=== PATIENT | male | born 1960 | race Caucasian/White ===

== ENCOUNTER 2018-07-15 20:47 | Inpatient (IN) | payer OTHER, SELFPAY ==
[2018-07-15 20:47] VITALS: BP 184/120; PULSE 104; RESP 16; TEMP 36.7; O2SAT 94
[2018-07-15] MEDS: MORPHINE 2 MG/ML INJ 4 MG IV (21:28)
[2018-07-15] MEDS: LACTATED RINGERS 1,000 ML 1000 ML IV (21:29)
[2018-07-15 21:43] LABS: Lactate (Lactic Acid) 1.5 mmol/L (0.7-2.1)
[2018-07-15] MEDS: MORPHINE 4 MG/ML INJ IV ×2 (22:04→23:11)
[2018-07-15] MEDS: levoFLOXacin 750 MG/150 ML PIGGYBACK 100 MG IV (22:44)
[2018-07-15] MEDS: LACTATED RINGERS 1,000 ML 125 ML IV (22:48)
[2018-07-15 23:45] VITALS: BP 146/105; PULSE 119; RESP 16; TEMP 37.4; O2SAT 94
[2018-07-15 23:56] VITALS: O2SAT 94
[2018-07-16] VITALS (9 sets, daily range): BP systolic 129–150; BP diastolic 82–109; PULSE 90–102; RESP 16–20; TEMP 36.7–37.1; O2SAT 90–97
[2018-07-16] MEDS: MORPHINE 2 MG/ML INJ 6 MG IV (00:13)
[2018-07-16] MEDS: metroNIDAZOLE 500 MG/100 ML PIGGYBACK 100 MG IV ×4 (00:25→20:22)
--- NOTE | 2018-07-16 01:04 | PM.HP.1 ---
History of Present Illness Date Patient Seen: 07/15/18 Time Patient Seen: 21:00 Chief complaint: APPENDIX Narrative: 57-year-old man with history of renal artery stenosis and hypertension as well as problematic gout presented to an outside hospital with acute abdominal pain. briefly approximately 24 hours ago the patient awoke from sleep with significant nausea and vomiting and feeling unwell. The symptoms progressed and by later in the morning he developed significant periumbilical abdominal pain. he proceeded to go to work but then returned home after 3 hours with significant fatigue and worsening pain. the pain in the early afternoon then progressed and localized to the right lower quadrant. he continued to feel poor with worsening nausea. Pain was worsened with walking or other movement. Patient presented to the emergency department in Sunday where he was found to have a leukocytosis and a CT scan demonstrated a locally contained perforation of a retrocecal appendix with adjacent phlegmon changes. No abscess identified. He was taken by helicopter to our facility. Upon arrival patient felt minimally improved. His initial heart rate was 110. He was hypertensive and afebrile. Of note there is a family history of colon cancer and grandmother at age 70. Patient has had a colonoscopy approximately 2 years ago underwent polypectomy at the time. He generally receives a colonoscopy now every 5 years. Patient History Medical History (Updated 07/15/18 @ 21:08 by Carmela Gonzalez RN) Achilles tendonitis (Acute) Arthritis (Acute) GERD (gastroesophageal reflux disease) (Acute) Gout (Acute) Hyperlipidemia (Acute) Hypertension (Acute) Lumbosacral radiculopathy (Acute) Skiing accident (Acute) Tendonitis of left rotator cuff (Acute) Surgical History (Updated 07/15/18 @ 21:09 by Carmela Gonzalez RN) H/O arthroscopy of right knee (Acute ~09/2011) S/P colonoscopic polypectomy (Acute ~05/2015) Social History household members: spouse Smoking Status: Former smoker alcohol intake: current Family & Social History Social History: household members spouse Prior Living Arrangements House Safety & Behavioral: Feels Safe in Current Yes Environment Been Physically Hurt or No Threatened By a Person Suicidal Ideation Description None Tobacco & Substance use: Smoking Status Former smoker alcohol intake current alcohol intake frequency a few times a week Substance Use Type marijuana Meds Home Medications Medication Instructions Recorded Confirmed Type allopurinol [Zyloprim] 300 mg PO DAILY 07/15/18 07/15/18 History benazepril 20 mg PO BID 07/15/18 07/15/18 History hydrocodone-acetaminophen [Alto] 2 tab PO Q4-6H PRN 07/15/18 07/15/18 History ibuprofen [Motrin IB] 400 mg PO Q4-6H PRN 07/15/18 07/15/18 History magnesium 07/15/18 History simvastatin [Zocor] 40 mg PO QPM 07/15/18 07/15/18 History Allergies Allergy/AdvReac Type Severity Reaction Status Date / Time Cephalosporins Allergy Rash Verified 07/15/18 21:02 Penicillins Allergy Rash Verified 07/15/18 21:02 Review of Systems Eyes Eyes: Denies bulging eyes ENT Ears, Nose, Mouth, and Throat: No lip swelling Cardiovascular Cardiovascular: Denies generalize swelling Respiratory Respiratory: Denies stridor Gastrointestinal Gastrointestinal: Denies coffee ground emesis Musculoskeletal Musculoskeletal: Denies loss of height Integumentary/Breasts Skin/Breast: Denies wounds Neurologic Neurologic: Denies abnormal speech and Denies confusion Psychiatric Psychiatric: Denies confusion Endocrine Endocrine: Denies deepening of the voice Hematologic/Lymphatic Hematologic/Lymphatic: Denies lymphadenopathy Allergic/Immunologic Allergic/Immunologic: Denies lip swelling Exam Vital Signs (past 8 hours): - 07/15/18 20:47 07/15/18 23:45 07/15/18 23:56 Temperature 98.0 F 99.3 F Pulse Rate 104 H 119 H Respiratory Rate 16 16 Blood Pressure 184/120 H 146/105 H Pulse Oximetry 94 94 94 Oxygen Delivery Method Room Air Oxygen Flow Rate 0 Const General: cooperative and healthy appearing Orientation: alert [facility] Head: normal to inspection Nose: nares normal Mouth: oral mucosae normal and lip normal Eyes Eyelids: eyelids normal Conjunctivae: conjunctivae normal Sclera: sclerae normal Neck Neck: supple and other (No thyromegally) Chest Chest: other (LCTAB , regular respiratory effort) Cardio Heart Sounds: S1 normal, S2 normal, no gallops, no murmurs and no rubs Other: Regular tachycardia GI Other: Abdomen moderately distended, no surgical incisions. there is an absence of bowel sounds. Tender to percussion in the right lower quadrant but not elsewhere. Dull to percussion. No hepatosplenomegaly. There is fairly mild tenderness in the left upper quadrant and left lower quadrant as well as the right upper quadrant. the right lower quadrant is significantly tender. There is however minimal reflexive guarding in the area and no rebound tenderness and a negative bed shake test. no umbilical or groin hernias identified. Skin General: no rashes or lesions noted Neuro General: alert and awake Psych Appearance: grossly normal Affect: normal affect Objective Labs Labs: Laboratory Results - last 24 hr 07/15/18 21:[address] images from outside hospital reviewed. They demonstrate a retrocecal appendix with fecalith near the appendiceal base. There is extraluminal air along the length of the appendix which appears dilated as well as thickened up. inflammatory changes are well localized to the right lower quadrant/retrocecal area. the cecum itself is also inflamed and the inflammation and thickening involves the appendiceal base. I did not identify free fluid within the abdomen there was no free fluid air within the abdomen beyond the small amount of air tracking along the serosa of the appendix. Assessment & Plan Assessment & Plan narrative: 57-year-old man with history of renal artery stenosis and hypertension now presents with acute perforated appendicitis locally contained adjacent to a retrocecal appendix. 1.: Perforated appendicitis- I discussed risks and benefits with the patient for early operative therapy versus management with antibiotics alone for now. Given the involvement of the appendiceal base and the phlegmon changes adjacent to the cecum I think it is quite likely that a surgical procedure at this time would result in an ileocecectomy. Patient himself is not acutely ill consistent with a locally contained perforation. His lactate from the outside hospital which was approximately 3 has now normalized to 1.5. Subjectively he feels somewhat improved since the initiation of antibiotics, by exam he has a tender but not acute abdomen. his blood pressure is high and his heart rate has come down with pain control. given this I think it is the most prudent option to delay surgery with the intention to treat with antibiotics with interval appendectomy a later date. I discussed that approximately 1 4 patient has failed this type of therapy and need not elective surgery. Plan: Levofloxacin/metronidazole IV Probiotic Pain control with multimodal therapy NPO for now until definitively nonsurgical Home benazepril and allopurinol, as needed hydralazine FEN LR 100 full labs in am NPO but meds with sips OK Quality VTE Deep Vein Thrombosis/Pulmonary Embolism Present on Admission: No
[2018-07-16] MEDS: MORPHINE 4 MG/ML INJ IV ×5 (01:30→20:20)
[2018-07-16] MEDS: LACTATED RINGERS 1,000 ML 125 ML IV (01:36)
[2018-07-16] MEDS: HEPARIN 5,000 UNIT/ML VIAL 5000 UNIT SUBCUT ×4 (01:55→22:24)
--- NOTE | 2018-07-16 02:20 | PC.NURSE ---
Shift note: Received pt from evening shift. Dr Reece requested current set of vitals which demonstrated hypertension and tachycardia, pt was also diaphoretic. He came to bedside to assess pt and determined that he would not be doing appendectomy tonight, he also ordered a one time dose of 6mg Morphine IV and pt was medicated per MAY. IV site that was started off site was positional and a new IV site was placed to facilitate IV antibiotic and fluid infusion, pt to remain NPO except for PO medications at this time. Pt's assessment also notable for abdominal pain and nausea that pt reports is from the pain, bowel tones are active and flatus is present. Pt able to make needs known and demonstrates appropriate use of call light.
[2018-07-16] MEDS: ACETAMINOPHEN 325 MG TABLET 975 MG PO ×4 (03:51→22:20)
[2018-07-16 05:56] LABS: Add Manual Diff / Slide Review NO; Basophils Absolute Auto 0 /uL (0-100); Basophils Percent Auto 0.1 % (0-2); Eosinophils Absolute Auto 0 /uL (0-450); Hematocrit 44.7 % (41-53); Hemoglobin 15.3 g/dL (13.5-17.5); Lymphocytes Absolute Auto 400 /uL (1100-4500); Lymphocytes Percent Auto 6.7 % (25-40); Mean Corpuscular HGB Conc 34.2 % (30-36); Mean Corpuscular Hemoglobin 30.9 PG (26-34); Mean Corpuscular Volume 90.1 fL (80-100); Monocytes Absolute Auto 400 /uL (0-900); Monocytes Percent Auto 7.2 % (3-14); Neutrophils Absolute Auto 5000 /uL (1500-7000); Platelet Count 218 X10^3/uL (150-400); Red Blood Cell Count 4.96 X10^6/uL (4.5-5.9); Red Cell Distribution Width 15.5 % (11.6-14.8); White Blood Cell Count 5.8 X10^3/uL (4.5-11.0)
[2018-07-16 05:58] LABS: BUN Creatinine Ratio 17.5 (6-22); Blood Urea Nitrogen 14 mg/dL (9-20); Carbon Dioxide 25 mmol/L (22-32); Chloride 99 mmol/L (98-107); Estimated Glomerular Filt Rate > 60.0 mL/min (>60); Glucose 133 mg/dL (70-100); HEMOLYSIS < 15 (0-50); Magnesium 1.6 mg/dL (1.6-2.3); Potassium 4.5 mmol/L (3.4-5.1); Sodium 135 mmol/L (137-145)
[2018-07-16] MEDS: SODIUM CHLORIDE 0.9% 1,000 ML 125 ML IV (10:02)
[2018-07-16] MEDS: LACTOBACILLUS ACIDOPHILUS TABLET 1 EACH PO ×2 (10:03→13:57)
[2018-07-16] MEDS: BENAZEPRIL 20 MG TABLET PO ×2 (10:03→22:19)
[2018-07-16] MEDS: ALLOPURINOL 300 MG TABLET PO (10:03)
--- NOTE | 2018-07-16 10:17 | PM.PN.1 ---
Subjective Date Patient Seen: 07/16/18 Time Patient Seen: 09:00 Interval history: Patient admitted overnight with acute ruptured retrocecal appendicitis. Started on antibiotic therapy. Overnight he has felt significant improvement of his pain, constitutionally feels improved as well. he has newly mildly hungry. No flatus or bowel movements. Exam Vital Signs (past 8 hours): - 07/16/18 05:51 07/16/18 08:00 07/16/18 08:43 Temperature 98.8 F 98.3 F Pulse Rate 100 H 101 H Respiratory Rate 16 16 Blood Pressure 132/99 H 139/90 Pulse Oximetry 92 92 92 Oxygen Delivery Method Room Air Oxygen Flow Rate 0 Narrative Exam Narrative: Vital signs noted afebrile with resolving tachycardia overnight. No hypotension Well-appearing in no acute distress, excellent historian Breathing comfortably on room air Regular rate and rhythm no murmurs gallops rubs Abdomen is moderately distended tender along right side with right lower quadrant area of greatest tenderness. No reflux of guarding, negative bed shake test, no rebound. Moderately improved over prior exam last night Periphery warm and well perfused Objective Labs Result Diagrams: 07/16/18 05:31 07/16/18 05:31 Labs: Laboratory Results - last 24 hr 07/15/18 07/16/18 07/16/18 21:25 05:31 05:31 WBC 5.8 RBC 4.96 Hgb 15.3 Hct 44.7 MCV 90.1 MCH 30.9 MCHC 34.2 RDW 15.5 H Plt Count 218 Neut % (Auto) 86.0 H Lymph % (Auto) 6.7 L [place] % (Auto) 7.2 Eos % (Auto) 0.0 L Baso % (Auto) 0.1 Neut # (Auto) 5000 Lymph # (Auto) 400 L [place] # (Auto) 400 Eos # (Auto) 0 Baso # (Auto) 0 Sodium 135 L Potassium 4.5 Chloride 99 Carbon Dioxide 25 BUN 14 Creatinine 0.80 Estimated GFR > 60.0 BUN/Creatinine Ratio 17.5 Glucose 133 H Lactate 1.5 Calcium 9.0 Magnesium 1.6 Assessment & Plan Assessment & Plan narrative: 57-year-old man hospital day 2. With renal artery stenosis/hypertension who presents with retrocecal locally contained perforated acute appendicitis. Reviewing initial CT imaging his appendiceal base and cecum is markedly inflamed. Given significant chance of need to convert to open to perform an ileocecectomy surgery performed at this time plan is to continue to treat with antibiotics as long as patient is improving -with plan for interval appendectomy in 8 weeks Plan: Continue levofloxacin/metronidazole with probiotic repleating mag OK for sips and ice chips ambulate heparin for DVT proph Quality VTE Deep Vein Thrombosis/Pulmonary Embolism Present on Admission: No
[2018-07-16] MEDS: MAGNESIUM SULFATE 4 GM/100 ML PIGGYBACK IV (10:51)
--- NOTE | 2018-07-16 15:41 | CM.DANOTE ---
Discharge Planning/Care Management DCP: assessment: case received, EMR reviewed. Discussed in Team Rounds. Pt is a 57 year old male who was airlifted from ER at [facility] last night and to care of General Surgeon: Dr. Federico Fuentes Payer: [employer] INPT admission status: confirmed by UR RN Jaron. Pt with dx of perforated appendicitis: currently being managed medically with plan as well outlined by Dr. Fuentes in his H&P. If this plan goes well pt will likely have surgery to remove appendix at a later date. P: DCP team will follow: need to check in with pt and follow for d/c issues and options. CM Discharge Assessment Start: 07/16/18 15:41 Freq: Status: Active Protocol: Document 07/16/18 15:41 ITV (Rec: 07/16/18 15:41 ITV [id number]) Discharge Planning Assessment Advance Directives? No: PRE INP NEED TO ASK IF HAVE ADVANCE DIR History Provided By Medical Record Prior Living Arrangements House Household Members spouse Review Status In Process Next Review Type Continued Stay Review
--- NOTE | 2018-07-16 19:02 | P.PN_ITS ---
Subjective Date Patient Seen: 07/16/18 Time Patient Seen: 18:30 Interval history: increased SOB on RA on exam increased work of breathing with crackles to mid lung sims Continues to look well with moderate R sided abd tenderness Likely over resusitated in 125hr of fluids all day Turning down IVF to 50/hr Small dose of furosemide Exam Vital Signs (past 8 hours): - 07/16/18 13:00 07/16/18 15:00 07/16/18 17:00 Temperature 98.4 F 98.1 F Pulse Rate 90 100 H Respiratory Rate 18 18 Blood Pressure 131/87 142/95 H Pulse Oximetry 90 L 92 91 Oxygen Delivery Method Room Air Oxygen Flow Rate 0 Objective Labs Result Diagrams: 07/16/18 05:31 07/16/18 05:31 Labs: Laboratory Results - last 24 hr 07/15/18 07/16/18 07/16/18 21:25 05:31 05:31 WBC 5.8 RBC 4.96 Hgb 15.3 Hct 44.7 MCV 90.1 MCH 30.9 MCHC 34.2 RDW 15.5 H Plt Count 218 Neut % (Auto) 86.0 H Lymph % (Auto) 6.7 L [place] % (Auto) 7.2 Eos % (Auto) 0.0 L Baso % (Auto) 0.1 Neut # (Auto) 5000 Lymph # (Auto) 400 L [place] # (Auto) 400 Eos # (Auto) 0 Baso # (Auto) 0 Sodium 135 L Potassium 4.5 Chloride 99 Carbon Dioxide 25 BUN 14 Creatinine 0.80 Estimated GFR > 60.0 BUN/Creatinine Ratio 17.5 Glucose 133 H Lactate 1.5 Calcium 9.0 Magnesium 1.6 Quality VTE Deep Vein Thrombosis/Pulmonary Embolism Present on Admission: No
[2018-07-16] MEDS: FUROSEMIDE 20 MG/2 ML VIAL IV (19:48)
[2018-07-16] MEDS: ONDANSETRON 4 MG/2 ML INJ IV (19:51)
[2018-07-16] MEDS: GABAPENTIN 600 MG TABLET PO (22:19)
[2018-07-16] MEDS: SIMVASTATIN 40 MG TABLET PO (22:20)
[2018-07-16] MEDS: levoFLOXacin 750 MG/150 ML PIGGYBACK 100 MG IV (22:20)
[2018-07-17] VITALS (28 sets, daily range): BP systolic 115–148; BP diastolic 66–95; PULSE 89–123; RESP 14–25; TEMP 36.4–37.8; O2SAT 86–98; BMI 30.1
--- NOTE | 2018-07-17 | DI.RAD.S_ITS ---
PROCEDURE: XR KUB INDICATIONS: NGT placement TECHNIQUE: One view of the abdomen acquired. COMPARISON: None. FINDINGS: Surgical changes and devices: Enteric tube with the tip projecting in the stomach Bowel: Bowel gas pattern is normal. Soft tissues: No suspicious abdominal calcifications. Visualized solid organ contours appear normal in size. Bones: No suspicious bony lesions. IMPRESSION: Enteric tube with the tip projecting in the stomach Dictated by: Jelani Adhikari M.D. on 07/17/2018 at 12:30 Approved by: Jelani Adhikari M.D. on 07/17/2018 at 12:31
--- NOTE | 2018-07-17 | PATH_ITS ---
[facility] Accession Number: [id number] . 01 Material submitted: . appendix - APPENDIX . 02 Diagnosis: Appendix, Laparoscopic Appendectomy: Acute appendicitis and serositis with rupture. MRV/07/19/2018 . 02 Electronically signed: . Nicci Hernández MD, Pathologist NPI- [id number] . 01 Gross description: . Received in formalin, labeled appendix, is an appendix in two pieces (length-7.0 cm, diameter-0.8 cm) with stock-pink smooth shiny serosa and attached mesoappendix (up to 0.9 cm in depth). The resection margin is received stapled. The serosa is partially covered in stock flaky friable exudate. The lumen contains red-brown clear watery fluid. Multiple perforations are identified in the proximal half. No nodules, masses or lesions are identified. The resection margin is inked black. Section code: (A1) resection margin en face with three additional serial sections; (A2) one-half of the bivalved tip. ([id number]) /MRV . 02 Pathologist provided ICD-10: K35.20 . 02 CPT . 417381 Performed at: 01 [facility] [address], [place], [place] [id number] MD Jaron Johnson MD Phone: [phone] Performed at: 02 [facility] [address] [place], [place] [id number] MD Mae Berry MD Phone: [phone]
[2018-07-17] MEDS: MORPHINE 4 MG/ML INJ IV ×4 (00:25→13:50)
[2018-07-17] MEDS: SODIUM CHLORIDE 0.9% 1,000 ML 125 ML IV (00:40)
--- NOTE | 2018-07-17 02:33 | PC.NURSE ---
BP and HR continue to be stable. Pain is controlled and no fever. Pt is NPO, eating a few icechips. Lungs are clear but diminished in bases.
[2018-07-17] MEDS: metroNIDAZOLE 500 MG/100 ML PIGGYBACK 100 MG IV ×3 (05:03→21:59)
[2018-07-17] MEDS: HEPARIN 5,000 UNIT/ML VIAL 5000 UNIT SUBCUT ×3 (05:54→23:25)
[2018-07-17 06:04] LABS: Add Manual Diff / Slide Review NO; Basophils Absolute Auto 0 /uL (0-100); Basophils Percent Auto 0.2 % (0-2); Eosinophils Absolute Auto 0 /uL (0-450); Hematocrit 42.1 % (41-53); Hemoglobin 14.2 g/dL (13.5-17.5); Lymphocytes Absolute Auto 600 /uL (1100-4500); Lymphocytes Percent Auto 4.9 % (25-40); Mean Corpuscular HGB Conc 33.8 % (30-36); Mean Corpuscular Hemoglobin 30.9 PG (26-34); Mean Corpuscular Volume 91.4 fL (80-100); Monocytes Absolute Auto 500 /uL (0-900); Monocytes Percent Auto 4.1 % (3-14); Neutrophils Absolute Auto 10800 /uL (1500-7000); Neutrophils Percent Auto 90.8 % (50-75); Platelet Count 204 X10^3/uL (150-400); Red Cell Distribution Width 15.7 % (11.6-14.8)
[2018-07-17 06:08] LABS: Blood Urea Nitrogen 21 mg/dL (9-20); Calcium 9.2 mg/dL (8.4-10.2); Carbon Dioxide 30 mmol/L (22-32); Chloride 94 mmol/L (98-107); Estimated Glomerular Filt Rate > 60.0 mL/min (>60); Glucose 105 mg/dL (70-100); HEMOLYSIS < 15 (0-50); Magnesium 2.4 mg/dL (1.6-2.3); Potassium 4.3 mmol/L (3.4-5.1); Sodium 133 mmol/L (137-145)
[2018-07-17] MEDS: BENAZEPRIL 20 MG TABLET PO (08:54)
[2018-07-17] MEDS: LACTOBACILLUS ACIDOPHILUS TABLET 1 EACH PO (08:54)
[2018-07-17] MEDS: ALLOPURINOL 300 MG TABLET PO (08:55)
--- NOTE | 2018-07-17 10:04 | CM.DPC ---
DCP Cont: Met briefly with patient. Alert and oriented. Stated, he is still having abdominal discomfort. Patient is hoping that he will not have to have major surgery for appendix removal. He stated that he should know if he will need surgery within the next couple of days. He resides in [place] with his spouse, Cheyanne. P: DCP to continue to follow patient closely. He could potentially be having surgery. Toya Marcus RN/Silk Screen Operator
--- NOTE | 2018-07-17 10:24 | PM.PN.1 ---
Subjective Date Patient Seen: 07/17/18 Time Patient Seen: 09:00 Interval history: Overnight new oxygen requirement with increased abdominal distention. Mild degree of volume overload responded well to a single dose of furosemide, and diminishing IVF. Patient subjectively feels approximately the same as the time of admission. His pain was worst at the time of presentation to [place] known nearly 3 days ago comparing now to that time he does not feel substantially improved. Yesterday he had developed a bit of an appetite which is now gone. No flatus or bowel movement since admission. His pain is extending up the right pericolic gutter and he feels he has irritated diaphragm on the right side. Exam Vital Signs (past 8 hours): - 07/17/18 03:14 07/17/18 04:39 07/17/18 07:00 Temperature 98.0 F Pulse Rate 89 Respiratory Rate 20 Blood Pressure 120/78 127/81 Pulse Oximetry 94 92 90 L 07/17/18 08:00 07/17/18 09:15 Temperature 97.7 F Pulse Rate 108 H Respiratory Rate 18 Blood Pressure 140/77 Pulse Oximetry 90 L 93 Oxygen Delivery Method Room Air Oxygen Flow Rate 1.5 Narrative Exam Narrative: Excellent historian mentation sound More rapid more shallow breathing with abdominal distention on 1.5 L O2 Regular rate and rhythm Abdomen is quite distended tympanitic to percussion. Continued tenderness over the right lower quadrant and extending somewhat into the right upper quadrant. there is no rebound negative bed shake test. No reflex or guarding Periphery warm well perfused Objective Labs Result Diagrams: 07/17/18 05:10 07/17/18 05:10 Labs: Laboratory Results - last 24 hr 07/17/18 07/17/18 05:10 05:10 WBC 12.0 H D RBC 4.60 Hgb 14.2 Hct 42.1 MCV 91.4 MCH 30.9 MCHC 33.8 RDW 15.7 H Plt Count 204 Neut % (Auto) 90.8 H Lymph % (Auto) 4.9 L [place] % (Auto) 4.1 Eos % (Auto) 0.0 L Baso % (Auto) 0.2 Neut # (Auto) 61547 H Lymph # (Auto) 600 L [place] # (Auto) 500 Eos # (Auto) 0 Baso # (Auto) 0 Sodium 133 L Potassium 4.3 Chloride 94 L Carbon Dioxide 30 BUN 21 H Creatinine 1.00 Estimated GFR > 60.0 BUN/Creatinine Ratio 21.0 Glucose 105 H Calcium 9.2 Magnesium 2.4 H Assessment & Plan Assessment & Plan narrative: 57-year-old man hospital day 3. The admitted for acute appendicitis with retrocecal locally contained perforation. He has been on antibiotics or 36 hours. Initially with some improvement now returned to degree of pain consistent with admission with new oxygen requirement, increasing distention, and leukocytosis newly elevated to 12. Concern he is failing antibiotic management will need to proceed to the operating. High risk of need for ileocecectomy an open procedure given degree of distention and involvement of the cecum on CT. Plan: Place NG tube to assist with gastric decompression and establishing intraop domain NPO mets OK OK to clamp NGT x 1 hr with med administraiton multimodal pain control WBC in PM to trend If not improving will likely take to surgery Quality VTE Deep Vein Thrombosis/Pulmonary Embolism Present on Admission: No
--- NOTE | 2018-07-17 11:13 | PC.NURSE ---
Order for NG tube received at approx. 1045. Pt was prepared with bed in a High Fowlers position. NG tubing measured from nose to ear to xyphoid process and marked at approx. 65cm. Right nare was attempted with some resistance. Pt informed this nurse that he had broken his nose in childhood. Left nare was then attempted and successful advancement of NG tube preformed. Gastric content flowed out upon placement. Air movement was auscultated over the gastric area and placement. Upon X ray, NG tubing was found to be in the fundal area of the stomach and was pulled back slightly. Second X-ray showed NG in lower gastric area. Pt was connected to LIS wall suction with green gastric content draining. NG tubing length has been marked at approx. 56cm. Pt tolerated well.
[2018-07-17] MEDS: TETRACAINE/BENZOCAINE/BUTAMBEN (CETACAINE) BOTTLE 1 SPRAY TOP (12:00)
[2018-07-17 13:27] LABS: White Blood Cell Count 12.8 X10^3/uL (4.5-11.0)
--- NOTE | 2018-07-17 15:16 | PC.NURSE ---
Pt has c/o pain 8/10 to his abdm, right chest and right back along the scapula. He has been medicated with 4mg IV morphine. His eyes are bloodshot and glassy. Abdm is hard, reddened and hot to the touch. Dr. Fuentes has been made aware of concerns at 1400 via telephone conveyance with assistance from surgical nurse as he was scrubbed into a case at that time.
--- NOTE | 2018-07-17 17:28 | SUR.HOLD ---
Ring removed and placed in specimen jar and given to DEENA Head Coordinator.
--- NOTE | 2018-07-17 17:42 | SUR.OPER ---
Supine on padded OR bed, head on pillow, left arm padded and tucked at side, legs uncrossed, safety belt at thigh, tape over blanket over lower legs . Gel pad under heels
[2018-07-17] MEDS: LACTATED RINGERS 1,000 ML 125 ML IV (17:47)
[2018-07-17] MEDS: BUPIVACAINE 0.25% W/ EPI (PF) 10 ML VIAL 30 ML INJ (18:11)
[2018-07-17] MEDS: ACETAMINOPHEN IV 1,000 MG/100 ML VIAL 400 MG IV (18:45)
--- NOTE | 2018-07-17 20:04 | PM.OP.1 ---
Operative Date/Time/Diagnoses Date of procedure: 07/17/18 Time of procedure: 18:00 Pre-op diagnosis: perforated appendicitis Post-op diagnosis: same Procedure & Clinicians Procedure: Laparoscopic appendectomy, diagnostic laparoscopy, laparoscopic abdominal washout Same procedure as scheduled: Yes Indications: 57-year-old man presented with acute ruptured locally contained appendicitis clinically well. on CT scan appeared to have significant cecal inflammation and the decision was made to treat with antibiotics and perform interval appendectomy. The patient initially did fairly well with antibiotic therapy however on the day of surgery he clinically declined with increased pain distention nausea vomiting and new fevers. He was taken emergently to the operating room. Surgeon: Federico Fuentes Click Yes if Unassisted: Yes Anesthesia Type: General Operative Notes Findings: Nearly entirely necrotic appendix with significant perforation and fecal contamination of the right pericolic gutter. Appendiceal base at the cecum was viable. Robust staple line. abdomen washed out with greater than 5 L of fluid Closure Type: primary Specimen(s): other (Appendix) Estimated Blood Loss (mL): 25 Procedure in detail: The patient was brought to the operating room he is intubated without incident he was prepped and draped in the usual sterile fashion and time-out was completed. entry into the abdomen and was via Campos cutdown technique. A vertically oriented incision was carried just inferior to the umbilicus. the skin and subcutaneous tissue was incised and spread between 2 S retractors. The linea alba was visualized grasped with Chris clamp and elevated. Two retention sutures were placed on either side of it. the Chris clamp was removed the retention sutures were brought taut and a scalpel was used to incise the linea alba the underlying peritoneum was identified grasped between 2 tonsil clamps and also divided with a scalpel. abdominal contents were visualized an S retractor was placed into the abdomen confirming intra-abdominal placement and used to guide the Campos trocar. the abdomen was then insufflated without incident 2 5 mm ports were then placed 1 in the left lower quadrant the other in the suprapubic area being careful to avoid the dome of the bladder. At this point it became clear that was limited domain to work and given the distention of the small intestine and a 3rd 5 mm port was placed at the level of the umbilicus along the left side to assist with retracting. There are multiple loops of small bowel adherent to themselves in the right lower quadrant these were carefully lysed bluntly with laparoscopic graspers along the small bowel to be removed out of the operative field. then proceeded to separate the right colon from the anterior abdominal wall which was adherent to. In the course of this ID loculated several fluid pockets which extended up to the level of the liver. this purulent fluid was suctioned out. Tracing the right colon inferiorly the cecum became visible. And the appendix emanating from the fusion of the tenia became obvious. It was rotated retro cecal E. to gain access to it and mobilized the right colon rotating it medially exposing the length of the appendix. With the suction offset platemaker I carefully created a window in the mesoappendix at the level of the appendiceal base. While most of the appendix was gangrenous at the base fortunately appeared to be relatively healthy tissue. a 3.5 mm laparoscopic stapler was brought to the abdomen and divided the appendix with a perhaps 1 mm stone. I then proceeded to follow the appendix from proximal to distal and working my way superiorly up the right pericolic gutter bluntly dissecting the appendix off the colon. A 2.5 mm laparoscopic stapler load with a total of 2 fires were used to divide the mesoappendix. There was some small amount of additional mesoappendix which was divided by progressively hooking the individual vessels with hook cautery. ultimately the appendix was entirely freed placed in Endo-Catch bag and later removed from the abdomen via the umbilical port site Then proceeded to perform an abdominal washout using greater than 5 L sectioning and de loculated pockets in Morison's pouch along the right pericolic gutter as well as within the pelvis. I continued to irrigate until the irrigant returned generally clear. A 19 [place] Rosalio drain was then placed through the suprapubic port into the abdomen draped along the right pericolic gutter adjacent to the appendiceal stump with loop down into pelvis. The right colon was then rotated back to its anatomic position. ports withdrawn under direct visualization hemostasis was confirmed abdomen was deinsufflated. The umbilical port site was closed with [id number] 0 Vicryl suture by tying together the retention sutures. incision sites were copiously irrigated and then closed using monofilament absorbable suture in subcuticular fashion with skin glue as dressing Patient was extubated and brought to PACU without incident Please assign a 22 modifier to this case -an additional 1.5 hours of dissection time required with advanced laparoscopic maneuvers for lysis of inflammatory adhesions, extensive washout. Complications: none Condition: stable Disposition: PACU
--- NOTE | 2018-07-17 20:22 | P.OP_ITS ---
Operative Date/Time/Diagnoses Date of procedure: 07/17/18 Time of procedure: 18:00 Pre-op diagnosis: perforated appendicitis Post-op diagnosis: same Procedure & Clinicians Procedure: Laparoscopic appendectomy, diagnostic laparoscopy, laparoscopic abdominal washout Same procedure as scheduled: Yes Indications: 57-year-old man presented with acute ruptured locally contained appendicitis clinically well. on CT scan appeared to have significant cecal inflammation and the decision was made to treat with antibiotics and perform interval appendectomy. The patient initially did fairly well with antibiotic therapy however on the day of surgery he clinically declined with increased pain distention nausea vomiting and new fevers. He was taken emergently to the operating room. Surgeon: Federico Fuentes Click Yes if Unassisted: Yes Anesthesia Type: General Operative Notes Findings: Nearly entirely necrotic appendix with significant perforation and fecal contamination of the right pericolic gutter. Appendiceal base at the cecum was viable. Robust staple line. abdomen washed out with greater than 5 L of fluid Closure Type: primary Specimen(s): other (Appendix) Estimated Blood Loss (mL): 25 Procedure in detail: The patient was brought to the operating room he is intub ated without incident he was prepped and draped in the usual sterile fashion and time-out was completed. entry into the abdomen and was via Campos cutdown technique. A vertically oriented incision was carried just inferior to the umbilicus. the skin and subcutaneous tissue was incised and spread between 2 S retractors. The linea alba was visualized grasped with Chris clamp and elevated. Two retention sutures were placed on either side of it. the Chris clamp was removed the retention sutures were brought taut and a scalpel was used to incise the linea alba the underlying peritoneum was identified grasped between 2 tonsil clamps and also divided with a scalpel. abdominal contents were visualized an S retractor was placed into the abdomen confirming intra- abdominal placement and used to guide the Campos trocar. the abdomen was then insufflated without incident 2 5 mm ports were then placed 1 in the left lower quadrant the other in the suprapubic area being careful to avoid the dome of the bladder. At this point it became clear that was limited domain to work and given the distention of the small intestine and a 3rd 5 mm port was placed at the level of the umbilicus along the left side to assist with retracting. There are multiple loops of small bowel adherent to themselves in the right lower quadrant these were carefully lysed bluntly with laparoscopic graspers along the small bowel to be removed out of the operative field. then proceeded to separate the right colon from the anterior abdominal wall which was adherent to. In the course of this ID loculated several fluid pockets which extended up to the level of the liver. this purulent fluid was suctioned out. Tracing the right colon inferiorly the cecum became visible. And the appendix emanating from the fusion of the tenia became obvious. It was rotated retro cecal E. to gain access to it and mobilized the right colon rotating it medially exposing the length of the appendix. With the suction road machine operator I carefully created a window in the mesoappendix at the level of the appendiceal base. While most of the appendix was gangrenous at the base fortunately appeared to be relatively healthy tissue. a 3.5 mm laparoscopic stapler was brought to the abdomen and divided the appendix with a perhaps 1 mm stone. I then proceeded to follow the appendix from proximal to distal and working my way superiorly up the right pericolic gutter bluntly dissecting the appendix off the colon. A 2.5 mm laparoscopic stapler load with a total of 2 fires were used to divide the mesoappendix. There was some small amount of additional mesoappendix which was divided by progressively hooking the individual vessels with hook cautery. ultimately the appendix was entirely freed placed in Endo-Catch bag and later r emoved from the abdomen via the umbilical port site Then proceeded to perform an abdominal washout using greater than 5 L sectioning and de loculated pockets in Morison's pouch along the right pericolic gutter as well as within the pelvis. I continued to irrigate until the irrigant returned generally clear. A 19 Citizen [place] Rosalio drain was then placed through the suprapubic port into the abdomen draped along the right pericolic gutter adjacent to the appendiceal stump with loop down into pelvis. The right colon was then rotated back to its anatomic position. ports withdrawn under direct visualization hemostasis was confirmed abdomen was deinsufflated. The umbilical port site was closed with [id number] 0 Vicryl suture by tying together the retention sutures. incision sites were copiously irrigated and then closed using monofilament absorbable suture in subcuticular fashion with skin glue as dressing Patient was extubated and brought to PACU without incident Please assign a 22 modifier to this case -an additional 1.5 hours of dissection time required with advanced laparoscopic maneuvers for lysis of inflammatory adhesions, extensive washout. Complications: none Condition: stable Disposition: PACU
--- NOTE | 2018-07-17 20:38 | SUR.PHASEI ---
1940 late entry To Pacu, sleeping, skin warm and dry, resp even and regular. SCD's on, NG to Low int. suction. Scrotum enlarged from insufflation gas as explained from the OR, Belly distented, slightly firm. Sites and bandaid around ADDY site CDI. 2014 to bedside, talking with patient, Patient oriented x3. Belly unchanged. Scrotal swelling going down, approx size of grapefruit. Surgeon and Dr. Rebollar have checked on the patient. 2044 Dr. Rebollar here, discussed that pt is stable but floor nurses are not comfortable caring for a pt. on O2 at 12 Liters/simple mask. suggested that he may go to ICU for closer monitoring if the floor felt this was needed.. coordinator notified and will talk with ICU. remains present, Pt has no pain/nausea. Addy emptied of total of 130ml pale orange fluid.
--- NOTE | 2018-07-17 21:02 | SUR.PHASEI ---
Only complaints have been of the hager catheter and the oxygen mask. Explained that hager will likely come out in the morning and that we are attempting to wean him off the oxygen - currently at 8L simple mask, sat 94-95%.
--- NOTE | 2018-07-17 21:17 | SUR.PHASEI ---
Called coordinator and informed her that he was at 8L simple mask and sat of 94-95%. She asked me to hold him longer to see if we can wean to CONSULTING NURSE. Sat was up to 96%, converted to 5LNP. Otherwise stable.
--- NOTE | 2018-07-17 21:29 | SUR.PHASEI ---
Immeasurable amount of NG fluid, only in tubing; air into the blue port per protocol. No significant change in the drainage volume. patient remains comfortable. O2 sat 95% on 5LNP, reduced to 3LNP. pt. remains awake and oriented, present,
--- NOTE | 2018-07-17 22:11 | SUR.PHASEI ---
2143 to room 220, bed down and locked, call light within reach, SCD's on, O2 at 3LNP 94% sat; belly unchanged, reviewed w/RN; scrotal size has further reduced. Pt denies pain/nausea, NG to LIS; present. no questions from staff, pt, or . Resp even and regular. VSS
--- NOTE | 2018-07-17 22:17 | SUR.PHASEI ---
Attepmted to edit LR on EMAR - pt had 3rd liter of LR hanging from the OR with 2000 ml infused. Total infused upon transfer 2300 ml.
[2018-07-17] MEDS: levoFLOXacin 750 MG/150 ML PIGGYBACK 100 MG IV (23:24)
[2018-07-18] VITALS (12 sets, daily range): BP systolic 129–146; BP diastolic 84–101; PULSE 98–122; RESP 18–20; TEMP 36.4–37.4; O2SAT 90–95
[2018-07-18] MEDS: MORPHINE 4 MG/ML INJ IV ×3 (01:21→10:36)
[2018-07-18] MEDS: SODIUM CHLORIDE 0.9% 1,000 ML 100 ML IV ×2 (03:43→15:54)
[2018-07-18] MEDS: metroNIDAZOLE 500 MG/100 ML PIGGYBACK 100 MG IV ×3 (05:14→22:10)
[2018-07-18 05:33] LABS: Hemoglobin 13.1 g/dL (13.5-17.5); Mean Corpuscular HGB Conc 33.5 % (30-36); Mean Corpuscular Hemoglobin 30.3 PG (26-34); Mean Corpuscular Volume 90.3 fL (80-100); Platelet Count 221 X10^3/uL (150-400); Red Blood Cell Count 4.32 X10^6/uL (4.5-5.9); Red Cell Distribution Width 16.1 % (11.6-14.8); White Blood Cell Count 13.5 X10^3/uL (4.5-11.0)
[2018-07-18 05:37] LABS: Add Manual Diff / Slide Review YES
[2018-07-18 05:42] LABS: BUN Creatinine Ratio 25.5 (6-22); Blood Urea Nitrogen 28 mg/dL (9-20); Calcium 8.7 mg/dL (8.4-10.2); Carbon Dioxide 27 mmol/L (22-32); Chloride 97 mmol/L (98-107); Estimated Glomerular Filt Rate > 60.0 mL/min (>60); Glucose 116 mg/dL (70-100); HEMOLYSIS < 15 (0-50); Magnesium 2.4 mg/dL (1.6-2.3); Potassium 4.2 mmol/L (3.4-5.1); Sodium 134 mmol/L (137-145)
[2018-07-18 06:25] LABS: Anisocytosis 2+
--- NOTE | 2018-07-18 06:38 | PC.NURSE ---
Notified electronic integrated systems mechanic doctor via answering service to report pt. still C/O pain. Order received to give 1 mg. of Dilaudid IVP x 1. Will implement order & monitor.
[2018-07-18] MEDS: HYDROMORPHONE 1 MG INJ IV (06:57)
[2018-07-18] MEDS: HEPARIN 5,000 UNIT/ML VIAL 5000 UNIT SUBCUT ×3 (06:58→22:12)
[2018-07-18] MEDS: SODIUM CHLORIDE 0.9% FLUSH 10 ML IV ×2 (10:37→22:12)
[2018-07-18] MEDS: ALLOPURINOL 300 MG TABLET PO (11:23)
[2018-07-18] MEDS: LACTOBACILLUS ACIDOPHILUS TABLET 1 EACH PO ×2 (11:23→17:22)
[2018-07-18] MEDS: ACETAMINOPHEN 325 MG TABLET 975 MG PO ×2 (11:24→17:22)
[2018-07-18] MEDS: AMLODIPINE 5 MG TABLET PO (11:37)
[2018-07-18] MEDS: HYDROMORPHONE 0.5 MG INJ IV ×3 (13:49→22:20)
--- NOTE | 2018-07-18 14:38 | CM.DPC ---
DCP Cont: Checked in on patient. Alert. Has NG tube in place. Had surgery yesterday. Anticipates that he will be here for a few more days. Let him know if any questions regarding discharge concerns, care management is available. P: DCP to continue to follow and offer any support, if needed at discharge. Patient should be able to go home when he is medically stable. Toya Marcus RN/Gambling Box Person
--- NOTE | 2018-07-18 15:20 | PC.NURSE ---
SHIFT SUMMARY: PATIENT STATED THIS AM, THAT DILAUDID IS WORKING BETTER THAN THE MORPHINE FOR PAIN CONTROL. WANTED ORDER CHANGED. ALSO WANTED TO AMBULATE IN HALLS. DISCUSSED SAME W/ SURGEON, WHO CHANGED PAIN MED ORDERS, AND CLARIFIED THAT NG TO BE CLAMPED FOR 1HR AFTER GIVEN PO MEDS ORDERED, AND THEN RESUME TO LIS. NOT TO BE CLAMPED FOR OVER 1 HR. PATIENT MAY AMBULATE IN HALLS. PATIENT TOLERATED AMBULATION AROUND [facility] W/ SPOUSE STANDING BY. NO NAUSEA. HE DID SIT UP IN THE RECLINER. DENIES FLATUS, NO NAUSEA. NG PUTTING OUT LARGE AMTS, JOVON DRAIN PUTTING OUT FAIR AMTS. SEE I&O'S.
--- NOTE | 2018-07-18 16:51 | PM.PN.1 ---
Subjective Date Patient Seen: 07/18/18 Time Patient Seen: 16:00 Interval history: Patient with significant improvement in pain since surgery yesterday, constitutionally feeling well. continues to have significant abdominal bloating, no hunger, no flatus, no bowel movement. He is getting up and moving within room and hallway. Exam Vital Signs (past 8 hours): - 07/18/18 11:09 07/18/18 12:26 07/18/18 12:50 Temperature 98.8 F Pulse Rate 122 H Respiratory Rate 20 Blood Pressure 146/95 H Pulse Oximetry 90 L 90 L 94 07/18/18 15:59 Temperature 99.3 F Pulse Rate 98 H Respiratory Rate 19 Blood Pressure 143/100 H Pulse Oximetry 95 Oxygen Delivery Method Nasal Cannula Oxygen Flow Rate 1.5 Narrative Exam Narrative: Constitutionally appears well Breathing comfortably on 1.5 L nasal cannula Regular rate and rhythm Abdomen markedly distended, soft, minimally tender to palpation, quite tympanitic. Negative bed shake test, no reflexive guarding Periphery warm well perfused Sams in place draining clear yellow urine Objective Labs Result Diagrams: 07/18/18 05:10 07/18/18 05:10 Labs: Laboratory Results - last 24 hr 07/18/18 07/18/18 05:10 05:10 WBC 13.5 H RBC 4.32 L Hgb 13.1 L Hct 39.0 L MCV 90.3 MCH 30.3 MCHC 33.5 RDW 16.1 H Plt Count 221 Neut % (Auto) Not Reportable Lymph % (Auto) Not Reportable Esmeralda % (Auto) Not Reportable Eos % (Auto) Not Reportable Baso % (Auto) Not Reportable Lymph # (Auto) Not Reportable Esmeralda # (Auto) Not Reportable Baso # (Auto) Not Reportable Seg Neutrophils % 73.0 H Band Neutrophils % 17.0 H Lymphocytes % (Manual) 7.0 L Monocytes % (Manual) 3.0 RBC Morphology See below Anisocytosis 2+ H Sodium 134 L Potassium 4.2 Chloride 97 L Carbon Dioxide 27 BUN 28 H Creatinine 1.10 Estimated GFR > 60.0 BUN/Creatinine Ratio 25.5 H Glucose 116 H Calcium 8.7 Magnesium 2.4 H Assessment & Plan Assessment & Plan narrative: 57-year-old man postop day 1. Status post difficult laparoscopic appendectomy with abdominal washout for perforated appendicitis developed abdominal sepsis. Now much improved clinically. Plan: Continue levofloxacin and metronidazole and probiotic Continue NG tube for ileus Continue Sams catheter, removed tomorrow Treating hypertension with amlodipine and as needed hydralazine - stopped home TYRESE inhibitor given trends towards REID Home statin Drain remains in place with loop down into pelvis, tracks along right pericolic gutter adjacent to appendiceal stump tip near Morison's pouch heparin for DVT proph Quality VTE Deep Vein Thrombosis/Pulmonary Embolism Present on Admission: No
[2018-07-18] MEDS: GABAPENTIN 600 MG TABLET PO (22:12)
[2018-07-18] MEDS: ATORVASTATIN 20 MG TABLET PO (22:12)
[2018-07-18] MEDS: levoFLOXacin 750 MG/150 ML PIGGYBACK 100 MG IV (23:19)
[2018-07-19] VITALS (15 sets, daily range): BP systolic 115–170; BP diastolic 98–110; PULSE 91–112; RESP 16–20; TEMP 36.6–38.1; O2SAT 91–94
[2018-07-19] MEDS: HYDROMORPHONE 0.5 MG INJ IV ×5 (02:39→22:44)
[2018-07-19] MEDS: ACETAMINOPHEN 325 MG TABLET 975 MG PO ×4 (02:45→21:10)
[2018-07-19] MEDS: SODIUM CHLORIDE 0.9% 1,000 ML 100 ML IV ×2 (04:34→16:42)
[2018-07-19] MEDS: metroNIDAZOLE 500 MG/100 ML PIGGYBACK 100 MG IV ×3 (05:13→21:26)
[2018-07-19] MEDS: HEPARIN 5,000 UNIT/ML VIAL 5000 UNIT SUBCUT ×3 (05:14→22:29)
[2018-07-19] MEDS: HYDRALAZINE 20 MG/ML VIAL 5 MG IV ×3 (06:07→21:12)
[2018-07-19] MEDS: ALLOPURINOL 300 MG TABLET PO (08:03)
[2018-07-19] MEDS: LACTOBACILLUS ACIDOPHILUS TABLET 1 EACH PO ×3 (08:04→16:12)
[2018-07-19] MEDS: SODIUM CHLORIDE 0.9% FLUSH 10 ML IV ×2 (08:04→21:11)
[2018-07-19] MEDS: AMLODIPINE 5 MG TABLET PO (08:04)
[2018-07-19 08:32] LABS: Blood Urea Nitrogen 29 mg/dL (9-20); Calcium 8.9 mg/dL (8.4-10.2); Carbon Dioxide 31 mmol/L (22-32); Chloride 97 mmol/L (98-107); Estimated Glomerular Filt Rate > 60.0 mL/min (>60); Glucose 139 mg/dL (70-100); HEMOLYSIS < 15 (0-50); Magnesium 2.6 mg/dL (1.6-2.3); Potassium 4.1 mmol/L (3.4-5.1); Sodium 137 mmol/L (137-145)
[2018-07-19 08:33] LABS: Hematocrit 41.5 % (41-53); Hemoglobin 13.5 g/dL (13.5-17.5); Mean Corpuscular HGB Conc 32.6 % (30-36); Platelet Count 270 X10^3/uL (150-400); Red Blood Cell Count 4.51 X10^6/uL (4.5-5.9); Red Cell Distribution Width 15.9 % (11.6-14.8); White Blood Cell Count 18.3 X10^3/uL (4.5-11.0)
[2018-07-19 08:44] LABS: Add Manual Diff / Slide Review YES
[2018-07-19 09:20] LABS: Neutrophils Absolute Manual 16470 /uL (3000-5900); Total Cells Counted 100
[2018-07-19 09:21] LABS: RBC Morphology Normal Morphology
--- NOTE | 2018-07-19 12:43 | PC.NURSE ---
OVERALL PATIENT STATES PAIN IMPROVED OVER YESTERDAY. ABD REMAINS DISTENDED, THO PATIENT REPORTS HAD FLATUS X2 THIS AM. NGT CLAMPED FOR 1HR AFTER PO MEDS THIS AM, AND PATIENT AMB IN HALLS. HAS BEEN SITTING UP IN RECLINER SINCE. RESUMED NGT TO LIS AFTER 1HR. NGT CLAMPED AGAIN, AFTER PO MED. SET UP FOR BEDBATH. PREFERS SPOUSE TO HELP HIM WITH THAT. PLANS TO AMBULATE AGAIN IN [place]AT[place]. RAHAT DC'D PER PATIENT REQUEST; INTACT, AFTER 8CC'S REMOVED FROM BALLOON. PATIENT TOLERATED WELL.
--- NOTE | 2018-07-19 12:55 | CM.DPNOTE ---
DCP: continued: Case received and EMR for last few days is reviewed. See that pt did have surgery on 07/[address] Fuentes notes procedure was a difficult laparoscopic appendectomy with washout for a perforated appendix. Observed pt up and mobilizing in halls today, NG to suction/clamped in place. Surgical drain is also in place. Sams catheter is out. Pt currently in room conversing with visitors. P: anticipate home when stable for same....will be following prn for needs
[2018-07-19] MEDS: GABAPENTIN 600 MG TABLET PO (21:10)
[2018-07-19] MEDS: ATORVASTATIN 20 MG TABLET PO (21:11)
--- NOTE | 2018-07-19 21:36 | PM.PNPO.1 ---
Subjective Date Patient Seen: 07/19/18 Time Patient Seen: 21:36 Interval history: Patient seen this morning at about 715 and again this evening. During the day he says he has begun to pass flatus and a very small bowel movement. He says he is feeling better but has began running a low-grade temperature. Exam Vital Signs (past 8 hours): - 07/19/18 14:00 07/19/18 15:32 07/19/18 15:40 Temperature 98.3 F 100.5 F H Pulse Rate 99 H 101 H Respiratory Rate 20 18 Blood Pressure 151/109 H 155/105 H Pulse Oximetry 93 94 94 07/19/18 17:33 07/19/18 17:55 07/19/18 20:21 Temperature 98.6 F 100.0 F H Pulse Rate 92 H Respiratory Rate 16 Blood Pressure 115/105 H 149/107 H Pulse Oximetry 91 07/19/18 21:12 Temperature Pulse Rate 91 H Respiratory Rate Blood Pressure 170/105 H Pulse Oximetry Oxygen Delivery Method Room Air Oxygen Flow Rate 1 Narrative Exam Narrative: Operative no apparent distress. Lungs are clear to auscultation with fairly good effort. I hear good breath sounds in the bases. His abdomen is much softer less distended. NG tube put out 400 today. Objective Labs Result Diagrams: 07/19/18 07:45 07/19/18 07:45 Labs: Laboratory Results - last 24 hr 07/19/18 07/19/18 07:45 07:45 WBC 18.3 H RBC 4.51 Hgb 13.5 Hct 41.5 MCV 92.0 MCH 30.0 MCHC 32.6 RDW 15.9 H Plt Count 270 Neut % (Auto) Estimator Paperboard Boxes Lymph % (Auto) Estimator Paperboard Boxes Levy % (Auto) Estimator Paperboard Boxes Eos % (Auto) Estimator Paperboard Boxes Baso % (Auto) Estimator Paperboard Boxes Neut # (Auto) Estimator Paperboard Boxes Lymph # (Auto) Estimator Paperboard Boxes Levy # (Auto) Estimator Paperboard Boxes Eos # (Auto) Estimator Paperboard Boxes Baso # (Auto) Estimator Paperboard Boxes Total Counted 100 Seg Neutrophils % 79.0 H Band Neutrophils % 11.0 H Lymphocytes % (Manual) 5.0 L Monocytes % (Manual) 5.0 Neutrophils # (Manual) 39480 H RBC Morphology Normal morphology Sodium 137 Potassium 4.1 Chloride 97 L Carbon Dioxide 31 BUN 29 H Creatinine 1.00 Estimated GFR > 60.0 BUN/Creatinine Ratio 29.0 H Glucose 139 H Calcium 8.9 Magnesium 2.6 H Assessment & Plan Post-op Postoperative Procedures Operation Date: 07/17/18 16:45 Actual Procedures Side Surgeon p Laparoscopic Appendectomy, diagnostic laparoscopy with abdominal I&D Federico Fuentes MD Postoperative status narrative: Patient's white blood cell count is rising and low-grade temperature has begun. He has had a limited treatment those thus far since his operation. Clinically he is improving with some return of bowel function. Postoperative plan narrative: Will obtain x-rays in the morning to see what is gas pattern is like. I really like to get his NG tube out which would help his respiratory status. Not yet ready obviously to start p.o.. If white blood cell count continues to rise will consider changing antibiotics. CBC in the a.m.. Incentive spirometer Quality VTE Deep Vein Thrombosis/Pulmonary Embolism Present on Admission: No
[2018-07-19] MEDS: levoFLOXacin 750 MG/150 ML PIGGYBACK 100 MG IV (22:29)
--- NOTE | 2018-07-19 23:09 | PC.NURSE ---
Pt A&OX3. 93%RA. LS: dim. pt used his IS several times. pt tolerating his ice chips. BTX4, passing gas, abd distended. pt had a small BM-dark brown. SBA. pain controlled with IV dilaudid. pt was febrile 100.5, medicated with tylenol-temp down to 98.6.
[2018-07-20] VITALS (11 sets, daily range): BP systolic 141–167; BP diastolic 100–112; PULSE 83–98; RESP 16–20; TEMP 36.4–37.1; O2SAT 92–97
[2018-07-20] MEDS: HYDROMORPHONE 0.5 MG INJ IV ×5 (03:22→23:46)
[2018-07-20] MEDS: ACETAMINOPHEN 325 MG TABLET 975 MG PO ×3 (03:23→16:41)
[2018-07-20] MEDS: metroNIDAZOLE 500 MG/100 ML PIGGYBACK 100 MG IV ×3 (05:16→23:51)
[2018-07-20] MEDS: HEPARIN 5,000 UNIT/ML VIAL 5000 UNIT SUBCUT ×3 (05:47→21:46)
[2018-07-20 06:59] LABS: Hematocrit 39.4 % (41-53); Hemoglobin 13.1 g/dL (13.5-17.5); Mean Corpuscular HGB Conc 33.3 % (30-36); Mean Corpuscular Hemoglobin 30.2 PG (26-34); Mean Corpuscular Volume 90.8 fL (80-100); Platelet Count 286 X10^3/uL (150-400); Red Blood Cell Count 4.34 X10^6/uL (4.5-5.9); Red Cell Distribution Width 16.2 % (11.6-14.8); White Blood Cell Count 16.9 X10^3/uL (4.5-11.0)
--- NOTE | 2018-07-20 07:00 | DI.RAD.S_ITS ---
PROCEDURE: XR ACUTE ABDOMEN SERIES INDICATIONS: Follow-up after laparoscopic removal of perforated appendix TECHNIQUE: One view chest and two views of the abdomen were acquired. COMPARISON: None. FINDINGS: Surgical changes and devices: Nasogastric tube tip and side-port project over the stomach. Surgical anastomotic material versus calcifications or intraluminal contrast projects over the bilateral lower quadrants of the abdomen. A surgical drain projects over the right lower quadrant of the abdomen. Chest: Bibasilar pulmonary opacities most consistent with atelectasis are again noted. Lungs are hypoinflated. Abdomen: No free intraperitoneal air identified. Diffuse small bowel dilatation again noted with multiple air-fluid levels again seen, similar to the comparison radiographs of 07/17/18. Bones: Moderate multilevel degenerative changes of the lumbar spine. IMPRESSION: 1. Diffuse bowel dilatation compatible with small bowel obstruction versus ileus, similar to comparison exam of 07/17/18. 2. Nasogastric tube tip and side-port project over the stomach. 3. Surgical drain projects over the right lower quadrant of the abdomen. 4. Pulmonary hypoinflation with bibasilar atelectasis. Dictated by: Johnie Mcconnell M.D. on 07/20/2018 at 15:00 Approved by: Johnie Mcconnell M.D. on 07/20/2018 at 15:10
[2018-07-20 07:04] LABS: Add Manual Diff / Slide Review YES
[2018-07-20 07:29] LABS: Neutrophils Absolute Manual 13013 /uL (3000-5900); RBC Morphology Normal Morphology; Total Cells Counted 100
[2018-07-20] MEDS: ALLOPURINOL 300 MG TABLET PO (09:17)
[2018-07-20] MEDS: AMLODIPINE 5 MG TABLET PO (09:17)
[2018-07-20] MEDS: LACTOBACILLUS ACIDOPHILUS TABLET 1 EACH PO ×3 (09:17→16:59)
--- NOTE | 2018-07-20 13:19 | P.PN_ITS ---
Subjective Date Patient Seen: 07/20/18 Time Patient Seen: 13:11 Interval history: Patient feels about the same as yesterday. Nofurther flatus or BM. Would like a shower. Is ambulating Exam Vital Signs (past 8 hours): - 07/20/18 08:00 07/20/18 08:30 07/20/18 11:00 Temperature 97.6 F 97.8 F Pulse Rate 83 98 H Respiratory Rate 20 20 Blood Pressure 167/112 H 147/103 H Pulse Oximetry 97 94 92 Oxygen Delivery Method Room Air Oxygen Flow Rate 1 Narrative Exam Narrative: cooperative and pleasant. Lungs clear. Fairly good effort. Improving. Heart RRR. Abdomen soft. No tendernesss except on the right side. Remains distended. A little less so than yesterday. Objective Labs Result Diagrams: 07/20/18 06:40 07/19/18 07:45 Labs: Laboratory Results - last 24 hr 07/20/18 06:40 WBC 16.9 H RBC 4.34 L Hgb 13.1 L Hct 39.4 L MCV 90.8 MCH 30.2 MCHC 33.3 RDW 16.2 H Plt Count 286 Neut % (Auto) Not Reportable Lymph % (Auto) Not Reportable [place] % (Auto) Not Reportable Eos % (Auto) Not Reportable Baso % (Auto) Not Reportable Lymph # (Auto) Not Reportable [place] # (Auto) Not Reportable Baso # (Auto) Not Reportable Total Counted 100 Seg Neutrophils % 60.0 Band Neutrophils % 17.0 H Lymphocytes % (Manual) 12.0 L Atypical Lymphs % 2.0 H Monocytes % (Manual) 9.0 Neutrophils # (Manual) 35906 H RBC Morphology Normal morphology Assessment & Plan Post-op Postoperative Procedures Operation Date: 07/17/18 16:45 Actual Procedures Side Surgeon p Laparoscopic Appendectomy, diagnostic laparoscopy with abdominal I&D Federico Fuentes MD Postoperative status narrative: WBC down a little but still with significant amount of bands. Temp is down from last night. xrays show distended loops of small bowel. Postoperative plan narrative: repeat cbc in am. Change for Levaquin to Invanz(ertepenem) and continue metronidizole for now. Checked with pharmacy and should have low risk of cross reacting with PCN allergic patients. May shower. Encouraged walking and deep breathing. dulcolax supp later today. Quality VTE Deep Vein Thrombosis/Pulmonary Embolism Present on Admission: No
[2018-07-20] MEDS: ERTAPENEM 1 GM in SODIUM CHLORIDE 0.9% 100 ML 200 ML IV (13:46)
[2018-07-20] MEDS: DEXTROSE 5%-0.45% NS 1,000 ML 125 ML IV ×2 (13:47→23:46)
--- NOTE | 2018-07-20 15:22 | CM.DPC ---
DCP:continued: pt continues with slow improvement. Dr. June has changed antibiotic today from Levaquin to Ertapenem. Pt continues to mobilize. Expecting home when stable for same.
[2018-07-20] MEDS: ATORVASTATIN 20 MG TABLET PO (20:36)
[2018-07-20] MEDS: SODIUM CHLORIDE 0.9% FLUSH 10 ML IV (20:37)
[2018-07-20] MEDS: GABAPENTIN 600 MG TABLET PO (20:37)
[2018-07-20] MEDS: BISACODYL 10 MG SUPP PR (20:39)
[2018-07-21] VITALS (11 sets, daily range): BP systolic 130–148; BP diastolic 91–104; PULSE 68–105; RESP 16–18; TEMP 36.8–37.7; O2SAT 92–95
[2018-07-21] MEDS: HYDROMORPHONE 0.5 MG INJ IV ×4 (02:58→17:27)
[2018-07-21] MEDS: ACETAMINOPHEN 325 MG TABLET 975 MG PO ×4 (02:59→20:42)
[2018-07-21] MEDS: HEPARIN 5,000 UNIT/ML VIAL 5000 UNIT SUBCUT ×3 (05:46→20:43)
[2018-07-21] MEDS: metroNIDAZOLE 500 MG/100 ML PIGGYBACK 100 MG IV ×3 (05:53→17:24)
[2018-07-21 06:26] LABS: Hematocrit 38.2 % (41-53); Hemoglobin 12.6 g/dL (13.5-17.5); Mean Corpuscular HGB Conc 33.1 % (30-36); Mean Corpuscular Hemoglobin 29.7 PG (26-34); Platelet Count 310 X10^3/uL (150-400); Red Blood Cell Count 4.24 X10^6/uL (4.5-5.9); Red Cell Distribution Width 16.4 % (11.6-14.8); White Blood Cell Count 19.3 X10^3/uL (4.5-11.0)
[2018-07-21 06:36] LABS: Add Manual Diff / Slide Review YES
[2018-07-21] MEDS: SODIUM CHLORIDE 0.9% FLUSH 10 ML IV ×2 (06:52→08:53)
[2018-07-21 08:06] LABS: Neutrophils Absolute Manual 14668 /uL (3000-5900); Total Cells Counted 100
[2018-07-21 08:07] LABS: Anisocytosis 1+; Polychromasia 1+
[2018-07-21] MEDS: ALLOPURINOL 300 MG TABLET PO (08:53)
[2018-07-21] MEDS: LACTOBACILLUS ACIDOPHILUS TABLET 1 EACH PO ×3 (08:53→17:24)
[2018-07-21] MEDS: AMLODIPINE 5 MG TABLET PO (08:53)
[2018-07-21] MEDS: DEXTROSE 5%-0.45% NS 1,000 ML 125 ML IV ×2 (10:00→20:44)
--- NOTE | 2018-07-21 11:15 | PC.NURSE ---
Addendum entered by Melissa Campos R.N. 07/21/18 11:18: Pt just given 0.5mg of iv dilaudid and pt is going to take a nap. He is resting comfortably in bed with ivf infusing. into see patient and states that he is feeling better. He will take a shower after iv antibiotics have infused. Abdomen is distended with bt that are hypoactive. Pt has had a small stool this morning. Original Note: Pt is A&Ox3, he denies pain this morning. All oral medications given with a sip of water and then NG tube clamped for one hour. Pt tolerated well. His NG tube is connected to LIS with green biled colored drainage. Pt has 3 small incisions to his abdomen that are open to air and a joão drain that has ss fluid. He has ambulated in the halls and is sitting up in the chair comfortably.
[2018-07-21] MEDS: ERTAPENEM 1 GM in SODIUM CHLORIDE 0.9% 100 ML 200 ML IV (12:45)
--- NOTE | 2018-07-21 14:12 | PM.PNPO.1 ---
Subjective Date Patient Seen: 07/21/18 Time Patient Seen: 10:21 Interval history: Patient is a gentleman post laparoscopic appendectomy for perforated appendicitis. He says he feels a lot better than yesterday. He is passing gas now on had a bowel movement. Has been ambulated. Has not yet had a shower. Exam Vital Signs (past 8 hours): - 07/21/18 07:55 07/21/18 09:46 07/21/18 11:17 Temperature 99.9 F H 98.9 F Pulse Rate 77 80 Respiratory Rate 18 18 Blood Pressure 139/96 H 132/91 H Pulse Oximetry 92 95 95 Oxygen Delivery Method Room Air Oxygen Flow Rate 0 Narrative Exam Narrative: Patient cooperative. Much better color. Lungs are clear but he has decreased breath sounds in the right base compared to the left. Heart regular rate and rhythm without murmur gallop. Abdomen is soft but distended. Not really tender even with vigorous shaking. Objective Labs Result Diagrams: 07/21/18 06:01 07/19/18 07:45 Labs: Laboratory Results - last 24 hr 07/21/18 06:01 WBC 19.3 H RBC 4.24 L Hgb 12.6 L Hct 38.2 L MCV 90.0 MCH 29.7 MCHC 33.1 RDW 16.4 H Plt Count 310 Neut % (Auto) Not Reportable Lymph % (Auto) Not Reportable [place] % (Auto) Not Reportable Eos % (Auto) Not Reportable Baso % (Auto) Not Reportable Lymph # (Auto) Not Reportable [place] # (Auto) Not Reportable Baso # (Auto) Not Reportable Total Counted 100 Seg Neutrophils % 64.0 Band Neutrophils % 12.0 H Lymphocytes % (Manual) 6.0 L Atypical Lymphs % 4.0 H Monocytes % (Manual) 13.0 H Eosinophils % (Manual) 1.0 L Neutrophils # (Manual) 30094 H RBC Morphology See below Polychromasia 1+ H Anisocytosis 1+ H Assessment & Plan Post-op Postoperative Procedures Operation Date: 07/17/18 16:45 Actual Procedures Side Surgeon p Laparoscopic Appendectomy, diagnostic laparoscopy with abdominal I&D Federico Fuentes MD Postoperative status narrative: Patient is clinically improved. His white blood cell count however is gone up a little bit but they are less bands in the differential. He is afebrile. I think I will leave him on his present course of treatment. His NG output is fairly high but that rib presents probably at least 800 cc of water. I worked with him with his incentive spirometer an asked him to keep at it. I suspect is decreased breath sounds on the right side is due to diaphragmatic irritation from the inflammation and abscess that were located all along the right gutter. Encouraged him to keep ambulating. Postoperative plan narrative: See above. Will order labs and x-rays for tomorrow morning. This will give me a clear picture of how he is doing. Quality VTE Deep Vein Thrombosis/Pulmonary Embolism Present on Admission: No
[2018-07-21] MEDS: GABAPENTIN 600 MG TABLET PO (20:41)
[2018-07-21] MEDS: BISACODYL 10 MG SUPP PR (20:41)
[2018-07-21] MEDS: ATORVASTATIN 20 MG TABLET PO (20:42)
--- NOTE | 2018-07-21 23:11 | PC.NURSE ---
Ambulating in hallway. Given Dulc Supp HS with small result. Pt reports he has had a total of 6 small BMs today. Pain well controlled with 0.5 IV dilaudid. NG tube clamped for intervals up to one hour with no signs of nausea or abdominal distress. IV fluids and abx continue.
[2018-07-22] VITALS (9 sets, daily range): BP systolic 127–149; BP diastolic 86–98; PULSE 61–97; RESP 16–18; TEMP 36.7–37.4; O2SAT 91–94
[2018-07-22] MEDS: metroNIDAZOLE 500 MG/100 ML PIGGYBACK 100 MG IV ×4 (00:47→18:10)
[2018-07-22] MEDS: HYDROMORPHONE 0.5 MG INJ IV ×6 (00:47→21:35)
[2018-07-22] MEDS: HEPARIN 5,000 UNIT/ML VIAL 5000 UNIT SUBCUT ×3 (06:01→21:18)
[2018-07-22] MEDS: DEXTROSE 5%-0.45% NS 1,000 ML 125 ML IV (06:03)
[2018-07-22 06:36] LABS: Add Manual Diff / Slide Review NO; Basophils Absolute Auto 0 /uL (0-100); Basophils Percent Auto 0.1 % (0-2); Eosinophils Absolute Auto 0 /uL (0-450); Eosinophils Percent Auto 0.2 % (2-4); Hematocrit 38.7 % (41-53); Hemoglobin 12.9 g/dL (13.5-17.5); Lymphocytes Absolute Auto 2000 /uL (1100-4500); Lymphocytes Percent Auto 9.2 % (25-40); Mean Corpuscular HGB Conc 33.4 % (30-36); Mean Corpuscular Volume 89.8 fL (80-100); Monocytes Absolute Auto 2100 /uL (0-900); Monocytes Percent Auto 9.8 % (3-14); Neutrophils Absolute Auto 17500 /uL (1500-7000); Neutrophils Percent Auto 80.7 % (50-75); Platelet Count 389 X10^3/uL (150-400); Red Blood Cell Count 4.31 X10^6/uL (4.5-5.9); Red Cell Distribution Width 16.1 % (11.6-14.8); White Blood Cell Count 21.7 X10^3/uL (4.5-11.0)
[2018-07-22 06:44] LABS: BUN Creatinine Ratio 21.3 (6-22); Blood Urea Nitrogen 17 mg/dL (9-20); Calcium 8.5 mg/dL (8.4-10.2); Carbon Dioxide 33 mmol/L (22-32); Chloride 95 mmol/L (98-107); Estimated Glomerular Filt Rate > 60.0 mL/min (>60); Glucose 119 mg/dL (70-100); HEMOLYSIS < 15 (0-50); Magnesium 2.1 mg/dL (1.6-2.3); Potassium 3.2 mmol/L (3.4-5.1); Sodium 136 mmol/L (137-145)
--- NOTE | 2018-07-22 07:00 | DI.RAD.S_ITS ---
PROCEDURE: XR ACUTE ABDOMEN SERIES INDICATIONS: Follow-up. Decreased breath sounds right base. Distended TECHNIQUE: One view chest and two views of the abdomen were acquired. COMPARISON: [facility], CR, XR ACUTE ABDOMEN SERIES, 07/20/2018, 5:51. FINDINGS: Surgical changes and devices: Nasogastric tube is present. The tube appears to have been withdrawn slightly since the prior study and could be advanced about 5 more centimeters. Right lower quadrant pelvic drain in stable position. Chest: Lung volumes are low there is asymmetric right hemidiaphragm elevation. Plate-like atelectatic changes are present at the right lung base and there be may be a small right pleural effusion. Chronic platelike left midlung atelectasis is present. Heart size is normal. No pneumoperitoneum. Abdomen: Distended small bowel loops with air-fluid levels redemonstrated. Degree of distention is slightly worse compared to the prior study.. No suspicious calcifications. High density stool is seen in decompressed colon loops. There is a paucity of distal colon gas Visualized solid organ contours appear normal. Bones: No suspicious bony lesions. IMPRESSION: 1. Findings consistent with worsening of small bowel obstruction since the previous study. 2. There is been slight interval withdrawal of the nasogastric tube which could be advanced at least 5 cm. 3. Bibasilar atelectasis and small right pleural effusion. Dictated by: Laureen Martinez M.D. on 07/22/2018 at 9:02 Approved by: Laureen Martinez M.D. on 07/22/2018 at 9:07
[2018-07-22] MEDS: ACETAMINOPHEN 325 MG TABLET 975 MG PO ×3 (08:27→21:18)
[2018-07-22] MEDS: ALLOPURINOL 300 MG TABLET PO (08:27)
[2018-07-22] MEDS: LACTOBACILLUS ACIDOPHILUS TABLET 1 EACH PO ×2 (08:28→13:53)
[2018-07-22] MEDS: AMLODIPINE 5 MG TABLET PO (08:28)
[2018-07-22] MEDS: POTASSIUM CHLORIDE 20 MEQ/15 ML UDC 40 MEQ PO ×2 (09:54→13:53)
[2018-07-22] MEDS: SODIUM CHLORIDE 0.9% FLUSH 10 ML IV (10:03)
--- NOTE | 2018-07-22 12:21 | PM.PN.1 ---
Subjective Date Patient Seen: 07/22/18 Time Patient Seen: 07:20 Interval history: Feels improved today, improved energy, now quite hungry. Walking regularly. He is having moderately sized formed stools and is passing flatus regularly. Still feeling quite distended. no pain of significance. Exam Vital Signs (past 8 hours): - 07/22/18 06:39 07/22/18 07:35 07/22/18 08:43 Temperature 99.1 F 98.5 F Pulse Rate 81 87 Respiratory Rate 16 16 Blood Pressure 143/95 H 149/98 H Pulse Oximetry 93 93 93 Oxygen Delivery Method Room Air Oxygen Flow Rate 0 Narrative Exam Narrative: Has remained a febrile, Overall appears well Breathing comfortably on RA RRR Abd distended, tympanitic, NGT in place with dark bilious drainage, Mild tenderness along R side, otherwise nontender. Periphery warm and well perfused Objective Labs Result Diagrams: 07/22/18 06:08 07/22/18 06:08 Labs: Laboratory Results - last 24 hr 07/22/18 07/22/18 06:08 06:08 WBC 21.7 H RBC 4.31 L Hgb 12.9 L Hct 38.7 L MCV 89.8 MCH 30.0 MCHC 33.4 RDW 16.1 H Plt Count 389 Neut % (Auto) 80.7 H Lymph % (Auto) 9.2 L [place] % (Auto) 9.8 Eos % (Auto) 0.2 L Baso % (Auto) 0.1 Neut # (Auto) 05356 H Lymph # (Auto) 2000 [place] # (Auto) 2100 H Eos # (Auto) 0 Baso # (Auto) 0 Sodium 136 L Potassium 3.2 L Chloride 95 L Carbon Dioxide 33 H BUN 17 Creatinine 0.80 Estimated GFR > 60.0 BUN/Creatinine Ratio 21.3 Glucose 119 H Calcium 8.5 Magnesium 2.1 Assessment & Plan Assessment & Plan narrative: 57 yo man POD5 s/p lap appendictomy and abdominal washout for contaminated abdomen from perforated appendicitis. Subjectively and clinically he continues to improve. However he has had a progressive rise in leukocytotis now to 21 over the weekend. He abdominal distention from ileus vs early partial SBO (i favor the former) continues. If trend continues will Re image with CT of A/P with PO and IV contrast to eval for abscess formation and transition point tomorrow Plan: Continue Ertapenum IV, probitotic Continue NGT - OK to clamp with meds anti hypertensives with MANI Heparin for DVT proph Quality VTE Deep Vein Thrombosis/Pulmonary Embolism Present on Admission: No
[2018-07-22] MEDS: ERTAPENEM 1 GM in SODIUM CHLORIDE 0.9% 100 ML 200 ML IV (13:54)
--- NOTE | 2018-07-22 14:33 | PC.NURSE ---
SHIFT SUMMARY: PATIENT STATES HE FEELS HE IS GETTING BETTER OVERALL. REPORTS PAIN CONTROLLED W/ DILAUDID Q4HRS, STATES HE CAN REALLY FEEL IT THOUGH, WHEN IT WEARS OFF. ABD TENDER AND DISTENDED, FAIRLY SOFT HOWEVER. HE DOES HAVE +2 PRE-TIBIAL EDEMA, PITTING ALL THE WAY DOWN TO HIS FEET. HE HAS AMBULATED TWICE, BOTH TIMES SEVERAL LAPS INDEP IN THE HALLS. HIS NGT WAS ADVANCED 5-6 CM THIS AM AFTER REVIEWING XRAY RESULTS FROM THIS AM. AFTERWARDS, PATIENT'S POTASSIUM ELIXER WAS ADMINISTERED VIA HIS NGT PER SURGEON VERBAL INSTRUCTION OF SAME. TUBE CLAMPED AFTER AM PO MEDS FOR 1HR, THEN LIS RESUMED. PATIENT IS NOW CLAMPED AGAIN JUST PRIOR TO HIS PO MEDICATIONS THIS AFTERNOON. AFEBRILE. CALLS FOR NEEDS.
[2018-07-22] MEDS: DEXTROSE 5%-0.45% NS 1,000 ML 75 ML IV (18:10)
[2018-07-22] MEDS: ATORVASTATIN 20 MG TABLET PO (21:18)
[2018-07-22] MEDS: GABAPENTIN 600 MG TABLET PO (21:19)
[2018-07-23] VITALS (22 sets, daily range): BP systolic 120–143; BP diastolic 77–99; PULSE 71–100; RESP 13–20; TEMP 36.3–37.7; O2SAT 90–97; BMI 29.8
--- NOTE | 2018-07-23 | DI.CT.S_ITS ---
PROCEDURE: CT ABDOMEN PELVIS W CON INDICATIONS: POD6 lap appy - perf. much contam. WBC climbing. Abscess? TECHNIQUE: After the administration of oral and intravenous contrast, 5 mm thick sections acquired from the diaphragms to the symphysis. 5 mm thick coronal and sagittal reformats were performed. For radiation dose reduction, the following was used: automated exposure control, adjustment of mA and/or kV according to patient size. COMPARISON: None. FINDINGS: Image quality: Excellent. ABDOMEN: Lung bases: There is a small right pleural effusion. There is right basilar atelectasis. Heart size is within normal limits. Solid organs: Liver is normal in size and enhancement. There is subcapsular fluid with air within it consistent with a subcapsular liver abscess. Gallbladder is unremarkable. Biliary system is non-dilated. Pancreas enhances normally. Spleen is normal in size and enhancement. No adrenal nodules. Kidneys are normal in size and enhancement, without hydronephrosis. Peritoneum and bowel: There is a small bowel obstruction. Jejunal loops measure up to 4.9 cm. There is phlegmon in the region of the appendiceal bed. A surgical drain is in place. The colon is decompressed. There is mild diffuse colonic wall thickening. Nodes and vessels: No retroperitoneal or mesenteric adenopathy. Aorta and inferior vena cava are normal in caliber. Diffuse atherosclerotic calcifications. Miscellaneous: No ventral hernias. There is air and fluid in the scrotal sacs bilaterally suggesting that there are inguinal hernias. Question infected scrotal fluid. PELVIS: Genitourinary: Bladder wall thickness is normal. Miscellaneous: No inguinal hernias or adenopathy. Bones: No suspicious bony lesions. No vertebral body compression fractures. IMPRESSION: 1. Small right pleural effusion, right basilar atelectasis. 2. Phlegmon in the region of the appendiceal bed. 3. Small bowel obstruction. 4. Subcapsular liver abscess. 5. Surgical peritoneal drain in place. 6. There is fluid and air in the scrotal sacs bilaterally. This implies the presence of bilateral inguinal hernias. The scrotal fluid may be infected, or there may be air injected during surgical drain flushing. 7. Mild diffuse colonic wall thickening. Dictated by: Lexx Aguilera M.D. on 07/23/2018 at 12:24 Approved by: Lexx Aguilera M.D. on 07/23/2018 at 12:37
[2018-07-23] MEDS: metroNIDAZOLE 500 MG/100 ML PIGGYBACK 100 MG IV ×4 (00:45→20:40)
[2018-07-23] MEDS: HYDROMORPHONE 0.5 MG INJ IV ×4 (00:54→13:52)
[2018-07-23] MEDS: ACETAMINOPHEN 325 MG TABLET 975 MG PO ×2 (03:16→08:39)
[2018-07-23] MEDS: SODIUM CHLORIDE 0.9% FLUSH 10 ML IV ×4 (05:25→21:46)
[2018-07-23] MEDS: HEPARIN 5,000 UNIT/ML VIAL 5000 UNIT SUBCUT ×2 (06:16→21:56)
[2018-07-23 06:32] LABS: Hematocrit 35.5 % (41-53); Hemoglobin 11.6 g/dL (13.5-17.5); Mean Corpuscular HGB Conc 32.7 % (30-36); Mean Corpuscular Hemoglobin 29.5 PG (26-34); Mean Corpuscular Volume 90.3 fL (80-100); Platelet Count 409 X10^3/uL (150-400); Red Blood Cell Count 3.93 X10^6/uL (4.5-5.9); Red Cell Distribution Width 16.2 % (11.6-14.8); White Blood Cell Count 24.2 X10^3/uL (4.5-11.0)
[2018-07-23 06:37] LABS: BUN Creatinine Ratio 22.9 (6-22); Blood Urea Nitrogen 16 mg/dL (9-20); Calcium 8.2 mg/dL (8.4-10.2); Carbon Dioxide 29 mmol/L (22-32); Chloride 97 mmol/L (98-107); Estimated Glomerular Filt Rate > 60.0 mL/min (>60); Glucose 107 mg/dL (70-100); HEMOLYSIS < 15 (0-50); Potassium 3.2 mmol/L (3.4-5.1); Sodium 135 mmol/L (137-145)
[2018-07-23 06:45] LABS: Neutrophils Absolute Manual 18392 /uL (3000-5900); Total Cells Counted 100
[2018-07-23 06:47] LABS: Anisocytosis 1+
[2018-07-23] MEDS: DEXTROSE 5%-0.45% NS 1,000 ML 75 ML IV (10:09)
--- NOTE | 2018-07-23 10:37 | PC.NURSE ---
Addendum entered by Lauren Tripathi R.N. 07/23/18 15:25: pt to OR via bed at 1440, report given to truck and transport mechanic. at bedside aware. Addendum entered by Lauren Tripathi R.N. 07/23/18 13:35: From this AM assessment, NGT taped at 58cm, tape secure. Pt unclamped from NGT at 1235, approx 1150 mls were clearing in NGT. Original Note: Day Shift- Pt A&OX4, pt's Cheyanne in room and helps with ADL's, repositioning in bed and to BR. Pt has steady gait, slight weakness. Pt NPO except ice chips. Denies nausea. Clamped NGT at 0835 for oral contrast and medication administration. Pt drank 900mls of contrast slowly over 1.5 hours. Started to feel bloated, no nausea. Ambulation in halls with help offered, pt requested prn Dilaudid IV for 7/10 abd pain at 0940. Then will go for a walk. AM medications held per pt request until after imaging done or if feels less bloated from contrast. Spoke with Dr. Chen around 1015. Okay for pt to have CT abd scan 3 hours after oral contrast first started. CT Dept called and made aware, earliest at 1135.
[2018-07-23] MEDS: ERTAPENEM 1 GM in SODIUM CHLORIDE 0.9% 100 ML 200 ML IV (13:45)
[2018-07-23] MEDS: ALLOPURINOL 300 MG TABLET PO (13:47)
[2018-07-23] MEDS: LACTOBACILLUS ACIDOPHILUS TABLET 1 EACH PO (13:47)
[2018-07-23] MEDS: AMLODIPINE 5 MG TABLET PO (13:47)
[2018-07-23] MEDS: POTASSIUM CHLORIDE 20 MEQ/15 ML UDC 60 MEQ PO ×2 (13:48→21:57)
[2018-07-23] MEDS: LACTATED RINGERS 1,000 ML 42 ML IV ×2 (15:33→18:57)
[2018-07-23] MEDS: BUPIVACAINE 0.25% W/ EPI 30 ML VIAL INJ (17:07)
[2018-07-23] MEDS: ACETAMINOPHEN IV 1,000 MG/100 ML VIAL 400 MG IV (18:00)
[2018-07-23] MEDS: HYDROMORPHONE 2 MG INJ 0.5 MG IV ×4 (19:20→19:46)
[2018-07-23] MEDS: ONDANSETRON 4 MG/2 ML INJ IV (19:25)
--- NOTE | 2018-07-23 19:43 | P.OP_ITS ---
Operative Date/Time/Diagnoses Date of procedure: 07/23/18 Time of procedure: 17:00 Pre-op diagnosis: Small-bowel obstruction, perihepatic abdominal abscess Post-op diagnosis: same Procedure & Clinicians Procedure: Diagnostic laparoscopy Laparoscopic lysis of adhesion Laparoscopic abdominal washout Laparoscopic drainage of perihepatic abscess Same procedure as scheduled: No Indications: 57-year-old man postop day 5. Status post laparoscopic appendectomy and abdominal washout for perforated appendicitis with substantial intra- abdominal contamination. He had a slow progressively worsening leukocytosis, and stopped passing flatus with worsening of his abdominal distention. On the day of repeat surgery he had a CT scan which demonstrated a large consolidated fluid collection over the dome and lateral to the right lobe of the liver. Additionally his distal small bowel loops were decompressed, with significant dilation of the proximal loops suggestive of an SBO. Surgeon: Federico Fuentes Click Yes if Unassisted: Yes Anesthesia Type: General Operative Notes Findings: Patient was taken to the operating room, was intubated without incident, he is prepped and draped in the usual sterile fashion a time-out was completed. The previously placed drain at entering at the suprapubic region was left in place and prepped using Betadine. Entry into the abdomen I utilized a Campos technique. The incision just inferior to the umbilical crown was reopened the deeper subcutaneous tissues were easily spread open and the Vicryl sutures holding his fascia closed at the port site were identified the suture was cut. An S retractor was easily slipped into the abdomen used to guide placement of the Campos trocar. The abdomen was insufflated without incident. Two 5 mm ports were then placed 1 in the left lower quadrant utilizing the prior appendectomy site. Another was placed in the suprapubic region just superior to the previously placed drain. There is extensive inflammatory adhesions within the abdomen. Initially we were able to lyse these inflammatory adhesions between the anterior abdominal wall in the mass small bowel. A tongue of greater omentum was identified superficial to the majority of the mass of the small bowel. The inferior edge of this was identified in the greater omentum was rotated superiorly off the matted together small bowel. Beginning in the right lower quadrant the cecum was identified and emanating from it the ileocecal valve was identified and the terminal ileum as well. The terminal ileum to course directly inferior and was tightly adherent to the lateral abdominal wall on the right side. Using blunt dissection this was lysed free. Then progressed from a distal to proximal orientation placing inflammatory adhesions and opening up of multiple kinked of loops of bowel. I encountered an obvious transition point between the dilated proximal loops, and a decompressed distal loops. There was a hairpin turn at this area held together by inflammatory adhesions. These were opened and intestinal contents were seen to move through. I then traced the more dilated bowel more proximal to ensure that there was no additional significant adhesions that could be contributing to the obstruction. Due to the hazards of laparoscopic we running dilated thin walled bowel I did not run the entire small bowel to the ligament Treitz. I felt confident that I had identified the site of small bowel obstruction., I did rerun the small bowel from the ileocecal valve back to the level of dilation to ensure there were no distal obstructions missed.. Next proceeded to address the fluid collection adjacent to the liver. Two additional 5 mm ports were placed 1 in the epigastric region and the other at the midclavicular line in the right upper quadrant. I proceeded to lyse the inflammatory adhesions between the greater omentum hepatic flexure of the colon in the anterior abdominal wall. This led to the dome of the liver which was adherent to the diaphragm by a spongy rind of infected loculated material. There was cloudy fluid within it and around it as well. There was not des pus. A telephone service representative sample of this fluid was suctioned in a trap and sent for culture. I then proceeded to remove the majority of this thickened rind similar to a thoracic decortication. This was later placed in an Endo-Catch bag and removed from the abdomen. The area was opened to the right triangular ligament and posteriorly to the retroperitoneal structures and into Morison's pouch. The area was then copiously irrigated along the right pericolic gutter as well as the dome of the liver in the area of lysis of adhesions as well using a total of 4 L normal saline. This was all removed with suction. I then repositioned the existing drain with a loop down into the pelvis and the tip positioned in the right pericolic gutter. A 2nd drain was then placed through the right upper quadrant 5 mm port and brought over the dome of the liver with loop into Morison's pouch. Ports were then removed under direct visualization noted to be hemostatic the abdomen was deinsufflated. The umbilical port site was closed with 0 Vicryl [id number] suture Subcutaneous tissues were then copiously irrigated and skin was closed using monofilament absorbable suture in subcuticular fashion Steri-Strips followed by dressings were applied Patient was extubated and brought to PACU without incident Closure Type: primary Specimen(s): other (Tissue and fluid for culture only) Applied: drain(s) (Two drains as per body of dictation) Estimated Blood Loss (mL): 50 Blood products transfused: none Complications: none Condition: stable Disposition: PACU Plan for aftercare: PACU and then to acute care floor
--- NOTE | 2018-07-23 20:11 | PM.PN.1 ---
Subjective Date Patient Seen: 07/23/18 Time Patient Seen: 12:00 Interval history: Patient feeling increasingly bloated, no longer having bowel movements, no longer passing flatus. Constitutionally feels all right but growing fatigue Exam Vital Signs (past 8 hours): - 07/23/18 13:52 07/23/18 15:15 07/23/18 19:10 Temperature 99.9 F H 99.0 F Pulse Rate 84 100 H Respiratory Rate 20 18 Blood Pressure 134/83 137/90 139/89 Pulse Oximetry 95 91 07/23/18 19:15 07/23/18 19:20 07/23/18 19:24 Temperature Pulse Rate 97 H 97 H 98 H Respiratory Rate 20 13 17 Blood Pressure 134/94 H 135/89 141/89 H Pulse Oximetry 90 L 90 L 90 L 07/23/18 19:29 07/23/18 19:34 07/23/18 19:39 Temperature Pulse Rate 94 H 94 H 90 Respiratory Rate 13 17 13 Blood Pressure 129/85 131/87 120/83 Pulse Oximetry 94 93 94 Oxygen Delivery Method Simple Mask Oxygen Flow Rate 7 Narrative Exam Narrative: No acute distress, excellent historian Breathing comfortably on room air Regular rate and rhythm Abdomen quite distended, tympanitic, mildly tender to palpation along the right Incisions clean dry and intact CT scan from this a.m. reviewed -there is a obvious fluid collection over the dome of the right liver -this is not accessible by IR, in addition to distal small bowel loops are decompressed with the proximal quite dilated suggestive of an early postoperative small bowel obstruction. Objective Labs Result Diagrams: 07/23/18 05:48 07/23/18 05:48 Labs: Laboratory Results - last 24 hr 07/23/18 07/23/18 05:48 05:48 WBC 24.2 H RBC 3.93 L Hgb 11.6 L Hct 35.5 L MCV 90.3 MCH 29.5 MCHC 32.7 RDW 16.2 H Plt Count 409 H Total Counted 100 Seg Neutrophils % 76.0 H Lymphocytes % (Manual) 13.0 L Monocytes % (Manual) 11.0 Neutrophils # (Manual) 39607 H RBC Morphology See below Anisocytosis 1+ H Sodium 135 L Potassium 3.2 L Chloride 97 L Carbon Dioxide 29 BUN 16 Creatinine 0.70 Estimated GFR > 60.0 BUN/Creatinine Ratio 22.9 H Glucose 107 H Calcium 8.2 L Magnesium 2.0 Assessment & Plan Assessment & Plan narrative: 57-year-old man postop day 5 status post lap appy and abdominal washout for perforated appendicitis now with continuing to increase leukocytosis, obstipation, continued high NG tube output, and a CT scan demonstrating features of small-bowel obstruction. In addition there is a sizable fluid collection over the right dome of the liver that is not accessible by Ir Plan: Return to operating room for drainage of fluid collection, and laparoscopic lysis of adhesions to address SBO Continue antibiotics Replating potassium Quality VTE Deep Vein Thrombosis/Pulmonary Embolism Present on Admission: No
--- NOTE | 2018-07-23 20:35 | SUR.PHASEI ---
Pt arrived to pacu, 02 nasal cannula started the went to simple mask then weaned back to nasal cannula. Lower extremety edema to darby area, and both lower extremities. Pt unable to bend l knee due to pain, Dr. Fuentes aware. NGT to LIS. greenish drainage in bottle and tube. Pt medicated with Dilaudid for pain and ondansetron for nausea, nausea resolved and pain down to a tolerable level per pt. Pt transported back to room on and left in stable condition under the care of Tiff
--- NOTE | 2018-07-23 21:11 | PC.NURSE ---
Pt returned from OR at 2029. Denies pain at this time. Spouse with pt. Awake but drowsy. Pupils pinned, pt states he feels a bit disoriented when he first wakes up. O2 sats = 96% on 1L. Abdomen distended with x4 lap sites covered in telfa dressing. additional Rosalio drain placed on right LQ. Both JPs draining SS fluid. Surgeon spoke with pt and spouse. Can have one popsicle per shift if desired but nothing else PO. VSS. Requesting SCDs be removed for one hour as he has edema to LEs making his legs very tender. Noted scrotal and bilat LE edema. DIMENSION SPECIFICATION INSPECTOR reports scrotal edema is looking improved. Pt appears comfortable at this time.
[2018-07-24] VITALS (14 sets, daily range): BP systolic 120–137; BP diastolic 75–97; PULSE 80–94; RESP 16–19; TEMP 36.3–37; O2SAT 90–97
--- NOTE | 2018-07-24 | DI.RAD.S_ITS ---
PROCEDURE: XR ABDOMEN 1V INDICATIONS: eval for degree of air in large bowel. POD1 from PEPPER for SBO TECHNIQUE: One view of the abdomen acquired. COMPARISON: None. FINDINGS: Surgical changes and devices: Interval placement of new surgical drain extending along the right paracolic gutter with the tip projecting medially within the subdiaphragmatic space. Stable positioning of right-sided surgical drain projecting within the pelvis. Nasogastric tube extends below the level of the diaphragm with the distal tip projecting in the left upper abdomen. Bowel: Persistent dilated loops of small bowel identified throughout the abdomen with associated air-fluid levels and decompressed colon compatible with known small bowel obstruction. Soft tissues: No suspicious abdominal calcifications. Visualized solid organ contours appear normal in size. Bones: No suspicious bony lesions. IMPRESSION: 1. Interval placement of second surgical drain within the right upper abdomen. Stable positioning of right pelvic surgical drain and nasogastric tube. 2. Bowel gas pattern consistent with small bowel obstruction. Dictated by: Johnathon Lloyd M.D. on 07/24/2018 at 13:35 Approved by: Johnathon Lloyd M.D. on 07/24/2018 at 13:40
[2018-07-24] MEDS: metroNIDAZOLE 500 MG/100 ML PIGGYBACK 100 MG IV ×4 (00:22→17:42)
[2018-07-24] MEDS: HYDROMORPHONE 0.5 MG INJ IV ×10 (00:23→21:35)
[2018-07-24] MEDS: ACETAMINOPHEN 325 MG TABLET 975 MG PO ×4 (03:14→21:36)
[2018-07-24] MEDS: SODIUM CHLORIDE 0.9% FLUSH 10 ML IV ×3 (04:36→21:36)
[2018-07-24] MEDS: HEPARIN 5,000 UNIT/ML VIAL 5000 UNIT SUBCUT ×3 (05:49→21:38)
--- NOTE | 2018-07-24 06:13 | PC.NURSE ---
Pt. had evening Op for washout, lysis of adhesion, and drainage of perihepatic abscess. Pt continued to be in 6-8/10 pain this night and needed dilaudid Q2hrs. Pt has been on continuous pulse ox and 1liter of O2 NC for O2 sats in 90-92. On O2 pt is 93-94%. Tried to wean this at 0500 but pt. desats back down to 90. Lungs sounds clear bilaterally, pt has 2 jude drains and NG drainage has been 750ml, and Rgt Jude drain 20ml, Lft Jude drain 30ml. Pt has Bilaterally lower leg edema non-pitting 2+. Dressing are clean, dry and intact.
[2018-07-24 07:12] LABS: Blood Urea Nitrogen 16 mg/dL (9-20); Carbon Dioxide 30 mmol/L (22-32); Chloride 97 mmol/L (98-107); Estimated Glomerular Filt Rate > 60.0 mL/min (>60); Glucose 127 mg/dL (70-100); HEMOLYSIS < 15 (0-50); Magnesium 2.1 mg/dL (1.6-2.3); Potassium 4.5 mmol/L (3.4-5.1); Sodium 136 mmol/L (137-145)
--- NOTE | 2018-07-24 08:39 | PM.PN.1 ---
Subjective Date Patient Seen: 07/24/18 Time Patient Seen: 08:30 Interval history: Feeling well this am, some incisional pain, feels abdominal rumbling no flatus or BM. Fatigued. Exam Vital Signs (past 8 hours): - 07/24/18 03:31 07/24/18 07:10 07/24/18 07:40 Temperature Pulse Rate 93 H Respiratory Rate 16 Blood Pressure 137/91 H Pulse Oximetry 94 95 95 07/24/18 07:50 07/24/18 08:11 Temperature 98.2 F Pulse Rate 89 Respiratory Rate 19 Blood Pressure 135/80 Pulse Oximetry 93 95 Fraction of Inspired Oxygen 21 Oxygen Delivery Method Room Air Oxygen Flow Rate 0 Narrative Exam Narrative: I and P reviewed - Q8hr yesterday NGT 1000ml, now 750ml in same time periord Looks well, but fatigued breathing comfortably on RA RRR NGT with dark bilious drainage, abd distended, tympanitic. tender over port sites and RUQ, dressings dry, drains over R lobe of liver and pelvis/paracolic gutter on R both serosang. periphery warm, 2+ edema Objective Labs Result Diagrams: 07/23/18 05:48 07/24/18 06:34 Labs: Laboratory Results - last 24 hr 07/24/18 06:34 Sodium 136 L Potassium 4.5 D Chloride 97 L Carbon Dioxide 30 BUN 16 Creatinine 0.80 Estimated GFR > 60.0 BUN/Creatinine Ratio 20.0 Glucose 127 H Calcium 8.0 L Magnesium 2.1 Assessment & Plan Assessment & Plan narrative: 57M POD1 s/p reop lap PEPPER and drainage of perihepatic colection for infected fluid collection and early post op SBO. POD 6 status post lap appy and abdominal washout for perforated appendicitis. Now awaiting return of bowel function and resolution of infection. Pt without fevers. Plan: Multimodal pain control with APAP, gabapentin, methocarbamol, PRN opiates BP control for hx of renal artery stenosis NGT remains - OK to clamp for 1hr with PO meds, drains stay Ertapenum + metronidazole + probiotic Nutrition - Now 8 days since good po intake - no preexisting malnutrition will hold of on PICC/TPN as obstruction mechanically resolved, if return of bowel function prolonged will continue. Getting some carbohydrates with D5. Elect good this am heparin SQ for DVT Quality VTE Deep Vein Thrombosis/Pulmonary Embolism Present on Admission: No
[2018-07-24] MEDS: LACTOBACILLUS ACIDOPHILUS TABLET 1 EACH PO ×3 (08:50→16:22)
[2018-07-24] MEDS: AMLODIPINE 5 MG TABLET PO (08:50)
[2018-07-24] MEDS: ALLOPURINOL 300 MG TABLET PO (08:50)
[2018-07-24] MEDS: DEXTROSE 5%-0.45% NS 1,000 ML 75 ML IV (10:25)
[2018-07-24] MEDS: METHOCARBAMOL 500 MG TABLET PO ×3 (12:24→21:36)
[2018-07-24] MEDS: ERTAPENEM 1 GM in SODIUM CHLORIDE 0.9% 100 ML 200 ML IV (14:39)
--- NOTE | 2018-07-24 15:35 | PC.NURSE ---
Day Shift- Clarified with Dr. Bailey at 1500 that pt is to take KCL 60meq liq per order, with potassium level of 4.5 from this AM lab work. ordered re-check of labs tomorrow AM. Pt had total of 650mls of fluid from NGT. Clamped with po medication administration. NGT taped at 61 cm throughout shift. Pt sitting in chair most of shift, ambulated in halls X2 with his . Walked from room to end of conner towards [facility]. Walked slowly using walker. Denied any light-headedness or dizziness. ABD hypoactive BT, tympanic, no flatus, no nausea. States slightly less abd bloating compared to yesterday. Dilaudid IV prn given x3, pt felt he waited too long between the 0850 and 1225 dose. Available every 2 hours as needed, willing to try to extend to every 3 hours as needed.
[2018-07-24] MEDS: POTASSIUM CHLORIDE 20 MEQ/15 ML UDC 60 MEQ PO (16:21)
[2018-07-24] MEDS: ATORVASTATIN 20 MG TABLET PO (21:35)
[2018-07-24] MEDS: GABAPENTIN 600 MG TABLET PO (21:35)
--- NOTE | 2018-07-24 22:48 | PC.NURSE ---
Pt continues to feel unwell, requiring dilaudid IV to be given Q2hly - pt requesting each time. Rates pain at 7/10 down to 5/10 after med given. No nausea. Tolerating clamping of NG for meds. Enjoyed the popsicle. Abdomen distended with hypoactive bowel tones. Dressings to lap and drain sites CDI. UOP = 650 of ty colored urine. IV fluids continue at 75. Notes bilat LE edema with skin taut and shiny. Legs elevated. Spouse assisting in cares.
[2018-07-25] VITALS (9 sets, daily range): BP systolic 127–146; BP diastolic 76–89; PULSE 80–84; RESP 16–18; TEMP 36.7–37.6; O2SAT 92–95
--- NOTE | 2018-07-25 | DI.RAD.S_ITS ---
PROCEDURE: XR CHEST FOR PICC 1V INDICATIONS: PICC LINE PLACEMENT COMPARISON: None. FINDINGS: PICC was placed by the intravenous therapy team from the right side. Fluoroscopic spot film demonstrates tip of PICC in the upper SVC. IMPRESSION: Tip of PICC lies within the upper SVC. Dictated by: Jelani Adhikari M.D. on 07/25/2018 at 17:01 Approved by: Jelani Adhikari M.D. on 07/25/2018 at 17:02
--- NOTE | 2018-07-25 | DI.RAD.S_ITS ---
PROCEDURE: FL SMALL BOWEL FOLLOW THROUGH INDICATIONS: functional bowel obstruction COMPARISON: None. FINDINGS: KUB: Preprocedural photovoltaic fabrication technician film demonstrates nasogastric tube coiled in the proximal stomach. Dilated air-filled small bowel loops throughout the abdomen are seen. There is solid, hypodensity stool in a decompressed transverse colon. A surgical drain is curled within and extends over the right pelvis. There is an anastomosis in the right lower quadrant the abdomen. No suspicious abdominal calcifications. Visualized solid organ contours appear normal. No suspicious bony abnormalities. Small bowel: There is prompt gastric emptying with a duodenal dilatation. 3 hour post injection film demonstrates distended left abdominal small bowel loops. 9 hour film demonstrates a progression of new contrast into the decompressed proximal colon. 16 hour film demonstrates new contrast throughout the colon and into the rectum, but persistently dilated small bowel loops. IMPRESSION: 1. Delayed transit through dilated small bowel loops consistent with severe postoperative ileus. Partial obstruction cannot be excluded. Dictated by: Laureen Martinez M.D. on 07/26/2018 at 10:43 Approved by: Laureen Martinez M.D. on 07/26/2018 at 11:16
[2018-07-25] MEDS: HYDROMORPHONE PCA (6MG/30ML) 6 MG/30 ML PCA.VIAL IV (00:13)
[2018-07-25] MEDS: DEXTROSE 5%-0.45% NS 1,000 ML 75 ML IV ×2 (00:13→17:49)
[2018-07-25] MEDS: metroNIDAZOLE 500 MG/100 ML PIGGYBACK 100 MG IV ×5 (00:13→23:49)
[2018-07-25] MEDS: ACETAMINOPHEN 325 MG TABLET 975 MG PO ×3 (03:28→21:39)
[2018-07-25 06:02] LABS: Magnesium 2.3 mg/dL (1.6-2.3)
[2018-07-25 06:04] LABS: Hematocrit 36.6 % (41-53); Hemoglobin 11.9 g/dL (13.5-17.5); Mean Corpuscular HGB Conc 32.4 % (30-36); Mean Corpuscular Hemoglobin 29.2 PG (26-34); Mean Corpuscular Volume 90.3 fL (80-100); Platelet Count 574 X10^3/uL (150-400); Red Blood Cell Count 4.05 X10^6/uL (4.5-5.9); Red Cell Distribution Width 16.2 % (11.6-14.8)
[2018-07-25] MEDS: HEPARIN 5,000 UNIT/ML VIAL 5000 UNIT SUBCUT ×3 (06:06→21:40)
[2018-07-25 06:18] LABS: Blood Urea Nitrogen 16 mg/dL (9-20); Carbon Dioxide 33 mmol/L (22-32); Chloride 95 mmol/L (98-107); Estimated Glomerular Filt Rate > 60.0 mL/min (>60); Glucose 137 mg/dL (70-100); HEMOLYSIS < 15 (0-50); Potassium 3.8 mmol/L (3.4-5.1); Sodium 136 mmol/L (137-145)
[2018-07-25 07:57] LABS: Neutrophils Absolute Manual 19360 /uL (3000-5900); Total Cells Counted 100
[2018-07-25 07:58] LABS: RBC Morphology Normal Morphology
[2018-07-25] MEDS: ALLOPURINOL 300 MG TABLET PO (08:28)
[2018-07-25] MEDS: AMLODIPINE 5 MG TABLET PO (08:28)
[2018-07-25] MEDS: METHOCARBAMOL 500 MG TABLET PO ×3 (08:28→21:40)
[2018-07-25] MEDS: LACTOBACILLUS ACIDOPHILUS TABLET 1 EACH PO ×3 (08:28→18:48)
--- NOTE | 2018-07-25 11:39 | PC.NURSE ---
Addendum entered by Lauren Tripathi R.N. 07/25/18 15:07: NGT unclamped at 1245. Total NGT output for shift was 525 mls. Total input for shift was 240 mls. PINNER PRINTED CIRCUIT BOARDS Dilaudid shift totals cleared for 1.8 mg. Addendum entered by Lauren Tripathi R.N. 07/25/18 14:34: Rosalio drain X2 dressings removed for wet serous fluid. Area surrounding tube cleansed with NS, pat dry with gauze and drain gauze applied around tubing and secured with paper tape. For both drains sutures intact and no S/S of infection. Pt tolerated well. Original Note: Day Shift- NGT taped at nare 62cm. NGT to LIS with green returns. Clamped for po administration, pt swallows pills whole one at a time with water without difficulty. Clamped at 0830, released at 1000. Clmaped again at 1130. NGT canister emptied for 375 mls at 1130. Pt had a Popsicle, ice chips and water with meds, approx 165mls. BLE 2+ pitting edema from toes to just below knees, elevated on pillows while in chair. pedal pulses found with doppler and marked with pen. No other noted edema. PINNER [employer]INT[employer] CIRCUIT BOARDS Dilaudid in place and pt using properly, states effective pain management, pain 4/10 to abd, tenderness to right side abd. IVF infusing well to right FA PIV. Sams insitu draining clear yellow to ty urine. Pt's performed catheter care and assists pt's with ADL's, repositioning in chair, and ambulation in halls. Pt repositions self with some help from his adjusting pillows in chair or bed. Pt sitting on waffle cushion. Abd rosalio drains X2 on bulb suction, dressings to both CDI to mid lower abd and right upper abd. Lap sites covered with steri-strips, gauze and tegaderm.
[2018-07-25] MEDS: ERTAPENEM 1 GM in SODIUM CHLORIDE 0.9% 100 ML 200 ML IV (12:48)
--- NOTE | 2018-07-25 13:18 | PM.PN.1 ---
Subjective Date Patient Seen: 07/25/18 Time Patient Seen: 17:15 Interval history: Patient continues to improve constitutionally. He has less abdominal distention and subjectively. He has not passed flatus or had a bowel movement, does feel some rumbling Is quite fatigued also hungry. Pain well controlled Exam Vital Signs (past 8 hours): - 07/25/18 07:44 07/25/18 08:30 07/25/18 09:50 Temperature 98.2 F Pulse Rate 80 Respiratory Rate 18 Blood Pressure 146/89 H Pulse Oximetry 94 94 94 07/25/18 11:35 Temperature 98.0 F Pulse Rate 84 Respiratory Rate 17 Blood Pressure 137/76 Pulse Oximetry 94 Fraction of Inspired Oxygen 21 Oxygen Delivery Method Room Air Oxygen Flow Rate 0 Narrative Exam Narrative: Well-appearing in no acute distress, breathing comfortably on room, regular rate and rhythm no murmurs gallops rubs. NG tube in place draining bilious output, wounds are clean dry and intact dressings removed, drains with serosanguineous output, abdomen distended and tympanitic. Appropriately tender greatest near umbilical incision. periphery warm, 2+ LE edema Objective Labs Result Diagrams: 07/25/18 05:37 07/25/18 05:37 Labs: Laboratory Results - last 24 hr 07/25/18 07/25/18 07/25/18 05:37 05:37 05:37 WBC 22.0 H RBC 4.05 L Hgb 11.9 L Hct 36.6 L MCV 90.3 MCH 29.2 MCHC 32.4 RDW 16.2 H Plt Count 574 H Total Counted 100 Seg Neutrophils % 86.0 H Band Neutrophils % 2.0 L Lymphocytes % (Manual) 8.0 L Monocytes % (Manual) 4.0 Neutrophils # (Manual) 42698 H RBC Morphology Normal morphology Sodium 136 L Potassium 3.8 Chloride 95 L Carbon Dioxide 33 H BUN 16 Creatinine 0.80 Estimated GFR > 60.0 BUN/Creatinine Ratio 20.0 Glucose 137 H Calcium 8.0 L Magnesium 2.3 Assessment & Plan Assessment & Plan narrative: 57M POD2 s/p reop lap PEPPER and drainage of perihepatic colection for infected fluid collection and early post op SBO. POD 7 status post lap appy and abdominal washout for perforated appendicitis. Overall doing well slow to reconstitute bowel function. Intraoperatively lysed all distal adhesions do not suspect has continued early SBO post op. He has now been at least 10 days since patient is taking meaningful nutrition. Seven days since his 1st surgery. Does not appear that his bowel will regain function quickly. Plan for PICC and TPN Plan: Multimodal pain control with APAP, gabapentin, methocarbamol, UNLOAD ASSOCIATE BP control for hx of renal artery stenosis NGT remains - OK to clamp for 1hr with PO meds, drains stay, gastrographin study to prove GI tract open Ertapenum + metronidazole + probiotic Nutrition - PICC/TPN. Total fluids not to exceed 100hr Elect good this am heparin SQ for DVT Quality VTE Deep Vein Thrombosis/Pulmonary Embolism Present on Admission: No
--- NOTE | 2018-07-25 17:22 | P.PN_ITS ---
Subjective Date Patient Seen: 07/25/18 Time Patient Seen: 17:15 Interval history: Patient continues to improve constitutionally. He has less abdominal distention and subjectively. He has not passed flatus or had a bowel movement, does feel some rumbling Is quite fatigued also hungry. Pain well controlled Exam Vital Signs (past 8 hours): - 07/25/18 07:44 07/25/18 08:30 07/25/18 09:50 Temperature 98.2 F Pulse Rate 80 Respiratory Rate 18 Blood Pressure 146/89 H Pulse Oximetry 94 94 94 07/25/18 11:35 Temperature 98.0 F Pulse Rate 84 Respiratory Rate 17 Blood Pressure 137/76 Pulse Oximetry 94 Fraction of Inspired Oxygen 21 Oxygen Delivery Method Room Air Oxygen Flow Rate 0 Narrative Exam Narrative: Well-appearing in no acute distress, breathing comfortably on room, regular rate and rhythm no murmurs gallops rubs. NG tube in place draining bilious output, wounds are clean dry and intact dressings removed, drains with serosanguineous output, abdomen distended and tympanitic. Approp riately tender greatest near umbilical incision. periphery warm, 2+ LE edema Objective Labs Result Diagrams: 07/25/18 05:37 07/25/18 05:37 Labs: Laboratory Results - last 24 hr 07/25/18 07/25/18 07/25/18 05:37 05:37 05:37 WBC 22.0 H RBC 4.05 L Hgb 11.9 L Hct 36.6 L MCV 90.3 MCH 29.2 MCHC 32.4 RDW 16.2 H Plt Count 574 H Total Counted 100 Seg Neutrophils % 86.0 H Band Neutrophils % 2.0 L Lymphocytes % (Manual) 8.0 L Monocytes % (Manual) 4.0 Neutrophils # (Manual) 94120 H RBC Morphology Normal morphology Sodium 136 L Potassium 3.8 Chloride 95 L Carbon Dioxide 33 H BUN 16 Creatinine 0.80 Estimated GFR > 60.0 BUN/Creatinine Ratio 20.0 Glucose 137 H Calcium 8.0 L Magnesium 2.3 Assessment & Plan Assessment & Plan narrative: 57M POD2 s/p reop lap PEPPER and drainage of perihepatic colection for infected fluid collection and early post op SBO. POD 7 status post lap appy and abdominal washout for perforated appendicitis. Overall doing well slow to reconstitute bowel function. Intraoperatively lysed all distal adhesions do not suspect has continued early SBO post op. He has now been at least 10 days since patient is taking meaningful nutrition. Seven days since his 1st surgery. Does not appear that his bowel will regain function quickly. Plan for PICC and TPN Plan: Multimodal pain control with APAP, gabapentin, methocarbamol, DUST PULLER BP control for hx of renal artery stenosis NGT remains - OK to clamp for 1hr with PO meds, drains stay, gastrographin study to prove GI tract open Ertapenum + metronidazole + probiotic Nutrition - PICC/TPN. Total fluids not to exceed 100hr Elect good this am heparin SQ for DVT Quality VTE Deep Vein Thrombosis/Pulmonary Embolism Present on Admission: No
[2018-07-25] MEDS: AA 5 %/CALCIUM/LYTES/DEXT 20 % 1,000 ML with MULTIVITAMIN 10 ML, TRACE ELEMENTS 1 ML 42.125 ML IV (17:58)
[2018-07-25] MEDS: FAT EMULSIONS 50 GM/250 ML EMULSION IV (17:59)
[2018-07-25] MEDS: POTASSIUM CHLORIDE 20 MEQ/15 ML UDC 60 MEQ PO (18:48)
[2018-07-25] MEDS: ATORVASTATIN 20 MG TABLET PO (21:40)
[2018-07-26] VITALS (11 sets, daily range): BP systolic 121–139; BP diastolic 79–93; PULSE 70–77; RESP 16–20; TEMP 36.4–37.7; O2SAT 93–99; BMI 30.9
[2018-07-26] MEDS: ACETAMINOPHEN 325 MG TABLET 975 MG PO ×4 (02:46→22:00)
[2018-07-26] MEDS: metroNIDAZOLE 500 MG/100 ML PIGGYBACK 100 MG IV ×4 (05:48→23:48)
[2018-07-26] MEDS: HEPARIN 5,000 UNIT/ML VIAL 5000 UNIT SUBCUT ×3 (05:49→22:13)
[2018-07-26 06:13] LABS: Hematocrit 33.7 % (41-53); Hemoglobin 11.2 g/dL (13.5-17.5); Mean Corpuscular HGB Conc 33.1 % (30-36); Mean Corpuscular Hemoglobin 29.8 PG (26-34); Mean Corpuscular Volume 89.8 fL (80-100); Platelet Count 566 X10^3/uL (150-400); Red Blood Cell Count 3.76 X10^6/uL (4.5-5.9); Red Cell Distribution Width 15.8 % (11.6-14.8); White Blood Cell Count 17.3 X10^3/uL (4.5-11.0)
[2018-07-26 06:20] LABS: Blood Urea Nitrogen 14 mg/dL (9-20); Calcium 8.1 mg/dL (8.4-10.2); Carbon Dioxide 30 mmol/L (22-32); Chloride 95 mmol/L (98-107); Estimated Glomerular Filt Rate > 60.0 mL/min (>60); Glucose 142 mg/dL (70-100); HEMOLYSIS < 15 (0-50); Magnesium 2.2 mg/dL (1.6-2.3); Potassium 3.5 mmol/L (3.4-5.1); Sodium 134 mmol/L (137-145)
[2018-07-26 06:53] LABS: Neutrophils Absolute Manual 15397 /uL (3000-5900); Total Cells Counted 100
[2018-07-26 06:54] LABS: Anisocytosis 1+
--- NOTE | 2018-07-26 09:48 | PM.PN.1 ---
Subjective Date Patient Seen: 07/26/18 Time Patient Seen: 09:48 Interval history: Events: gastrographin follow through overnight at 9hrs post contrast - contrast seen to transit small bowel. Started on PICC/TPN yesterday S: Still quite fatigued Pt passing flatus for first time since appendectomy, no BM Pain controlled Exam Vital Signs (past 8 hours): - 07/26/18 05:54 07/26/18 07:30 Temperature 99.3 F 97.8 F Pulse Rate 73 70 Respiratory Rate 16 20 Blood Pressure 139/93 H 129/85 Pulse Oximetry 99 95 Fraction of Inspired Oxygen 21 Oxygen Delivery Method Room Air Oxygen Flow Rate 0 Narrative Exam Narrative: I and O reviewed Newly fluid ballance negative NGT output falling Looks well, mentation clear Breathing comfortably on RA RRR, strong radial pulse Abd distended - minimally improved, minimally tender, wounds CDI. Drains serous periphery with 2+ LE edema, warm Objective Labs Result Diagrams: 07/26/18 05:44 07/26/18 05:44 Labs: Laboratory Results - last 24 hr 07/26/18 07/26/18 05:44 05:44 WBC 17.3 H RBC 3.76 L Hgb 11.2 L Hct 33.7 L MCV 89.8 MCH 29.8 MCHC 33.1 RDW 15.8 H Plt Count 566 H Total Counted 100 Seg Neutrophils % 78.0 H Band Neutrophils % 11.0 H Lymphocytes % (Manual) 6.0 L Monocytes % (Manual) 5.0 Neutrophils # (Manual) 97593 H RBC Morphology See below Anisocytosis 1+ H Sodium 134 L Potassium 3.5 Chloride 95 L Carbon Dioxide 30 BUN 14 Creatinine 0.70 Estimated GFR > 60.0 BUN/Creatinine Ratio 20.0 Glucose 142 H Calcium 8.1 L Magnesium 2.2 Assessment & Plan Assessment & Plan narrative: 57M POD3 s/p reop lap PEPPER and drainage of perihepatic colection for infected fluid collection and early post op SBO. POD 8 status post lap appy and abdominal washout for perforated appendicitis. Newly begining to reconstitute bowel function - NGT output falling, now light bilious, passing flatus, less distended. Gastrographin study transited small bowel. WBC now convincingly falling. Blood glucose levels on BMP rising on TPN - starting ISS Q6hr Plan: Multimodal pain control with APAP, gabapentin, methocarbamol, HEALTH INSURANCE AGENT BP control for hx of renal artery stenosis NGT remains - OK to clamp for 1hr with PO meds, drains stay until discharge. OK to remove NGT once output under ~300/day may occure this weekend Ertapenum + metronidazole + probiotic Abx day 9 Nutrition - Plan to continue TPN/lipids until eating majority of nutritional needs, awaiting dietition consult today for assistence with TPN dosing. Total fluids not to exceed 100hr Elect good this am - repleating K as needs ~100meq daily with NGT outputs. FSG/Insulin SS to address hyperglycemia on TPN - PT not diabetic. Next CBC sunday - as clearly falling. heparin SQ for DVT Dr Porter covering this weekend Quality VTE Deep Vein Thrombosis/Pulmonary Embolism Present on Admission: No
[2018-07-26] MEDS: LACTOBACILLUS ACIDOPHILUS TABLET 1 EACH PO ×3 (10:16→17:32)
[2018-07-26] MEDS: METHOCARBAMOL 500 MG TABLET PO ×4 (10:17→22:12)
[2018-07-26] MEDS: AMLODIPINE 5 MG TABLET PO (10:17)
[2018-07-26] MEDS: ALLOPURINOL 300 MG TABLET PO (10:17)
[2018-07-26] MEDS: POTASSIUM CHLORIDE 20 MEQ/15 ML UDC 60 MEQ PO (10:19)
[2018-07-26] MEDS: HYDROMORPHONE PCA (6MG/30ML) 6 MG/30 ML PCA.VIAL IV (10:45)
--- NOTE | 2018-07-26 13:00 | PC.NURSE ---
Addendum entered by Lauren Tripathi R.N. 07/26/18 15:48: pt used a total of 2.2mg of ELECTRICIAN OUTSIDE Dilaudid during this shift. Original Note: Day Shift- NGT to LIS, clamped at 1025 for po meds administration. pt takes this opportunity to ambulate in room and hallway. Ambulated 1 lap around unit with steady gait, tolerated fair, fatigued at end of walk. Pt's assists with ADL's, repositioning from bed to chair to ambulation. Unclamped NGT at 1215, pt having small amount of ice chips and 1 popsicle. Abd Rosalio drains X2 TOE LASTER, dressings removed by . No S/S of infection, suture in place to each drain. Abd lap sites x5 CDI steri-strips. Voiding qs via urinal. TERRA PICC dressing CDI, TPN and IVF infusing well to total 100mls/hr per dr order. TPN at 42.1 mls/hr and IVF at 57.9 mls/hr. ELECTRICIAN OUTSIDE Dilaudid in place and pt states is effective for 4/10 abd discomfort. ELECTRICIAN OUTSIDE syringe changed, pt used 1mg/5mls thus far. No waste left in previous syringe. Abd BT are active, tympanic, bloated, states same as yesterday. No flatus yet this shift.
[2018-07-26] MEDS: ERTAPENEM 1 GM in SODIUM CHLORIDE 0.9% 100 ML 200 ML IV (13:58)
[2018-07-26] MEDS: DEXTROSE 5%-0.45% NS 1,000 ML 32.1 ML IV (15:30)
--- NOTE | 2018-07-26 15:33 | CM.DPNOTE ---
DCP: continued: Case received and discussed in Team Rounds: pt is now on TPN as of yesterday. He is mobilizing frequently in the halls with his . NG to suction remainds in place. Dr. Awad did a long LOS reviewed and deemed all care appropriate with pt needing extensive recovery after his complex surgery. Pt is expected to be here several more days before being ok'd for the home setting. DCP team will continue to follow.
[2018-07-26] MEDS: FAT EMULSIONS 50 GM/250 ML EMULSION IV (18:38)
[2018-07-26] MEDS: AA 5 %/CALCIUM/LYTES/DEXT 20 % 1,000 ML with MULTIVITAMIN 10 ML, TRACE ELEMENTS 1 ML, P... 42.958 ML IV (19:23)
[2018-07-26] MEDS: GABAPENTIN 600 MG TABLET PO (22:12)
[2018-07-26] MEDS: ATORVASTATIN 20 MG TABLET PO (22:12)
[2018-07-26] MEDS: POTASSIUM CHLORIDE 20 MEQ/15 ML UDC 40 MEQ PO (22:13)
[2018-07-26] MEDS: SODIUM CHLORIDE 0.9% FLUSH 10 ML IV (22:14)
--- NOTE | 2018-07-26 23:44 | PC.NURSE ---
pt had a small formed BM tonight. passing small amt of flatus. Bilat feet and ankles 2+ edema. legs are elevated above heart.
[2018-07-27] VITALS (9 sets, daily range): BP systolic 116–132; BP diastolic 75–83; PULSE 68–81; RESP 16–20; TEMP 36.2–38.6; O2SAT 92–98
[2018-07-27] MEDS: ACETAMINOPHEN 325 MG TABLET 975 MG PO (03:25)
[2018-07-27 06:25] LABS: BUN Creatinine Ratio 18.6 (6-22); Blood Urea Nitrogen 13 mg/dL (9-20); Carbon Dioxide 27 mmol/L (22-32); Chloride 98 mmol/L (98-107); Estimated Glomerular Filt Rate > 60.0 mL/min (>60); Glucose 109 mg/dL (70-100); HEMOLYSIS < 15 (0-50); Potassium 4.2 mmol/L (3.4-5.1); Sodium 134 mmol/L (137-145)
[2018-07-27] MEDS: HEPARIN 5,000 UNIT/ML VIAL 5000 UNIT SUBCUT ×3 (06:47→21:28)
[2018-07-27] MEDS: metroNIDAZOLE 500 MG/100 ML PIGGYBACK 100 MG IV ×3 (06:47→18:57)
[2018-07-27] MEDS: AMLODIPINE 5 MG TABLET PO (08:52)
[2018-07-27] MEDS: ALLOPURINOL 300 MG TABLET PO (08:57)
[2018-07-27] MEDS: LACTOBACILLUS ACIDOPHILUS TABLET 1 EACH PO ×3 (08:57→17:22)
[2018-07-27] MEDS: METHOCARBAMOL 500 MG TABLET PO ×3 (08:58→21:28)
--- NOTE | 2018-07-27 09:38 | PM.PN.1 ---
Subjective Date Patient Seen: 07/27/18 Time Patient Seen: 09:38 Interval history: Patient is now several days postop re-exploration drainage of a right subphrenic abscess enterolysis for SBO. Subjectively feeling better had 3 bowel movements last night is passing flatus. He has been afebrile the last 24 hours Exam Vital Signs (past 8 hours): - 07/27/18 06:00 07/27/18 07:52 07/27/18 08:47 Temperature 97.5 F L 98.8 F Pulse Rate 68 71 Respiratory Rate 16 20 Blood Pressure 123/78 131/77 Pulse Oximetry 96 98 98 Fraction of Inspired Oxygen 21 Oxygen Delivery Method Room Air Oxygen Flow Rate 0 Narrative Exam Narrative: Patient is alert and oriented he is afebrile Abdomen is less distended is fairly soft Johnny drains have serosanguineous clear fluid no evidence of purulence He has bilateral ankle edema. no evidence of DVT there is no erythema or local tenderness along the deep venous system in either leg. Objective Labs Result Diagrams: 07/26/18 05:44 07/27/18 05:30 Labs: Laboratory Results - last 24 hr 07/27/18 05:30 Sodium 134 L Potassium 4.2 Chloride 98 Carbon Dioxide 27 BUN 13 Creatinine 0.70 Estimated GFR > 60.0 BUN/Creatinine Ratio 18.6 Glucose 109 H Calcium 8.0 L Magnesium 2.0 Assessment & Plan Assessment & Plan narrative: Patient is recovering with the denominational of bowel function. He does have ankle edema. I will treat that with 1 dose of oral Lasix.. Will DC his peripheral IV continue the TPN. I am clamping the NG tube now and if there is minimal output in 4 hours will have the NG tube removed since he has had several bowel movements and is passing gas. TPN reordered for today. Potassium improved to 4.2 from 3.5 yesterday. Quality VTE Deep Vein Thrombosis/Pulmonary Embolism Present on Admission: No
[2018-07-27] MEDS: SODIUM CHLORIDE 0.9% 500 ML 21 ML IV (10:17)
[2018-07-27] MEDS: FUROSEMIDE 20 MG TABLET PO (10:17)
--- NOTE | 2018-07-27 10:36 | PC.NURSE ---
Addendum entered by Milly Childs R.N. 07/27/18 14:51: GI - pt victorina 4hr clamp of ng, reconnected and producing small qty brown fluid on LIS. Original Note: AM NOTE - pt is alert, pain managed with 3d artist dilaudid 0.2/10/6mg, ng with pale green fluid with particles in tubing and cannister, LIS, states had several BM yest joseluis and during night, 2+ pedal and ankle edema, greater l than r, does have hx edema knee due gout, tpn 42.9 and ivf at 57.1 ml/hr, hr reg 68, ra 98%, bt present, greater ruq, luq, Dr. Porter in and pt ng will remain clamped after the po meds for 4 hours and then reconnected, ivf dc'd, continued with NS at 21ml/hr for CONVERTING TECHNICIAN per protocol, 20mg po lasix admin, pt up ambul hallway, gait slow, pt states due to foot edema, steady, ret to chair with feet elevated.
[2018-07-27] MEDS: ERTAPENEM 1 GM in SODIUM CHLORIDE 0.9% 100 ML IV (13:46)
[2018-07-27] MEDS: ACETAMINOPHEN 325 MG TABLET 650 MG PO (17:37)
[2018-07-27] MEDS: FAT EMULSIONS 50 GM/250 ML EMULSION IV (18:58)
[2018-07-27] MEDS: AA 5 %/CALCIUM/LYTES/DEXT 20 % 1,000 ML with MULTIVITAMIN 10 ML, TRACE ELEMENTS 1 ML, P... 42.958 ML IV (18:59)
[2018-07-27] MEDS: GABAPENTIN 600 MG TABLET PO (21:28)
[2018-07-27] MEDS: ATORVASTATIN 20 MG TABLET PO (21:28)
--- NOTE | 2018-07-27 22:03 | PC.NURSE ---
PICC dressing changed at 2203. no BM and NG tube drained 175cc for joseluis shift. passing small amt of gas. pain 06/26.
[2018-07-28] VITALS (10 sets, daily range): BP systolic 103–135; BP diastolic 63–87; PULSE 70–82; RESP 16–20; TEMP 36.2–37.4; O2SAT 94–99
[2018-07-28] MEDS: metroNIDAZOLE 500 MG/100 ML PIGGYBACK 100 MG IV ×5 (00:05→23:48)
[2018-07-28] MEDS: HEPARIN 5,000 UNIT/ML VIAL 5000 UNIT SUBCUT ×3 (06:28→20:29)
[2018-07-28] MEDS: AMLODIPINE 5 MG TABLET PO (08:54)
[2018-07-28] MEDS: LACTOBACILLUS ACIDOPHILUS TABLET 1 EACH PO ×3 (08:54→16:44)
[2018-07-28] MEDS: ALLOPURINOL 300 MG TABLET PO (08:54)
[2018-07-28] MEDS: METHOCARBAMOL 500 MG TABLET PO ×4 (08:55→20:27)
[2018-07-28] MEDS: ACETAMINOPHEN 325 MG TABLET 650 MG PO ×3 (08:56→20:31)
--- NOTE | 2018-07-28 10:01 | PM.PN.1 ---
Subjective Date Patient Seen: 07/28/18 Time Patient Seen: 10:01 Interval history: Patient is several days postop drainage of a subphrenic abscess has been on TPN he is feeling well today. He has been passing flatus and having bowel movements now for 2 days. NG tube is produced only 250 cc over the last shift. He is ambulating but complaining of arthritic pain in the right ankle and left knee. Exam Vital Signs (past 8 hours): - 07/28/18 06:00 07/28/18 08:45 Temperature 97.7 F 99.1 F Pulse Rate 75 82 Respiratory Rate 16 18 Blood Pressure 133/84 135/87 Pulse Oximetry 95 97 Fraction of Inspired Oxygen 21 Oxygen Delivery Method Room Air Oxygen Flow Rate 0 Narrative Exam Narrative: Patient is afebrile. He is alert and oriented. Abdomen is soft nontender not distended Johnny drains are functioning and producing serosanguineous fluid only a modest amount. Objective Labs Result Diagrams: 07/26/18 05:44 07/27/18 05:30 Assessment & Plan Assessment & Plan narrative: Patient has yazdanism of GI function for the last 36 hours. I have discontinued his nasogastric tube. Will begin a full liquid diet. I will allow his TPN to and after this current infusion. Continue IV antibiotic therapy. I examined his legs yesterday and today and do not think he has DVT. Patient has been on 5000 of subcu heparin q.8 hours since surgery. He has tenderness and erythema at the right ankle and some of the left knee. Patient does have a history of gout. I do not know if he has gouty arthritis there. With gastric protection using Protonix I will start Toradol so that he can ambulate better today. Quality VTE Deep Vein Thrombosis/Pulmonary Embolism Present on Admission: No
--- NOTE | 2018-07-28 10:23 | PC.NURSE ---
Addendum entered by Milly Childs R.N. 07/28/18 14:53: GI - up to br w/void and loose bm, ret to bed, elev rle, continues with 2+ firm edema r foot and ankle, l foot continues with less edema than yesterdaypca used 1.2mg this shift. Addendum entered by Milly Childs R.N. 07/28/18 10:51: GI - nasal adhesive removed, ng tube dc'd easily, oral care provided, face washed, started sips clear juice. Original Note: AM NOTE - pt is alert, ng w/small qty lt green fluid in tubing, clamped this am for pt to ambul br and for am medications, voided and had a small, loose, brown stool this am, has been passing flatus, denies nausea, complaint discomfort lateral r ankle, more so today as yesterday his l foot was more swollen and uncomfortable, Dr. Porter in and examined, will have 20mg po lasix again today, ng to dc and start toradol for the ankle discomfort, clear to full liq to start. Pt ret to chair w/le elevated.
[2018-07-28] MEDS: KETOROLAC 30 MG/ML VIAL IV ×2 (10:33→20:41)
[2018-07-28] MEDS: FUROSEMIDE 20 MG TABLET PO (10:34)
[2018-07-28] MEDS: PANTOPRAZOLE 40 MG TABLET PO ×2 (10:34→20:27)
[2018-07-28] MEDS: INSULIN ASPART 100 UNIT/ML INSULN PEN SUBCUT ×2 (12:03→18:20)
[2018-07-28] MEDS: SODIUM CHLORIDE 0.9% 500 ML 21 ML IV (12:07)
[2018-07-28] MEDS: ERTAPENEM 1 GM in SODIUM CHLORIDE 0.9% 100 ML 200 ML IV (13:17)
[2018-07-28] MEDS: ATORVASTATIN 20 MG TABLET PO (20:27)
[2018-07-28] MEDS: GABAPENTIN 600 MG TABLET PO (20:27)
[2018-07-28] MEDS: SODIUM CHLORIDE 0.9% FLUSH 10 ML IV (20:27)
[2018-07-29] VITALS (7 sets, daily range): BP systolic 92–125; BP diastolic 53–77; PULSE 63–78; RESP 18; TEMP 36.3–37.6; O2SAT 95–98
[2018-07-29] MEDS: HEPARIN 5,000 UNIT/ML VIAL 5000 UNIT SUBCUT ×3 (06:47→21:33)
[2018-07-29] MEDS: KETOROLAC 30 MG/ML VIAL IV ×3 (06:47→21:33)
[2018-07-29] MEDS: metroNIDAZOLE 500 MG/100 ML PIGGYBACK 100 MG IV ×4 (06:47→23:59)
[2018-07-29] MEDS: PANTOPRAZOLE 40 MG TABLET PO ×2 (06:47→20:49)
--- NOTE | 2018-07-29 07:38 | PC.NURSE ---
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 Pt had a BM this AM at 0400
[2018-07-29] MEDS: METHOCARBAMOL 500 MG TABLET PO ×4 (08:08→20:48)
[2018-07-29] MEDS: FUROSEMIDE 40 MG TABLET PO (08:08)
[2018-07-29] MEDS: LACTOBACILLUS ACIDOPHILUS TABLET 1 EACH PO ×3 (08:08→17:59)
[2018-07-29] MEDS: ALLOPURINOL 300 MG TABLET PO (08:08)
[2018-07-29] MEDS: ACETAMINOPHEN 325 MG TABLET 650 MG PO ×3 (08:09→20:48)
[2018-07-29] MEDS: SODIUM CHLORIDE 0.9% FLUSH 10 ML IV ×3 (08:10→23:59)
[2018-07-29 09:39] LABS: Add Manual Diff / Slide Review NO; Basophils Absolute Auto 100 /uL (0-100); Basophils Percent Auto 0.5 % (0-2); Eosinophils Absolute Auto 100 /uL (0-450); Eosinophils Percent Auto 0.6 % (2-4); Hemoglobin 10.3 g/dL (13.5-17.5); Lymphocytes Absolute Auto 1000 /uL (1100-4500); Lymphocytes Percent Auto 6.7 % (25-40); Mean Corpuscular HGB Conc 33.3 % (30-36); Mean Corpuscular Hemoglobin 29.8 PG (26-34); Mean Corpuscular Volume 89.5 fL (80-100); Monocytes Absolute Auto 1400 /uL (0-900); Monocytes Percent Auto 9.4 % (3-14); Neutrophils Absolute Auto 12600 /uL (1500-7000); Neutrophils Percent Auto 82.8 % (50-75); Platelet Count 511 X10^3/uL (150-400); Red Blood Cell Count 3.47 X10^6/uL (4.5-5.9); Red Cell Distribution Width 15.5 % (11.6-14.8); White Blood Cell Count 15.2 X10^3/uL (4.5-11.0)
[2018-07-29 10:04] LABS: Blood Urea Nitrogen 14 mg/dL (9-20); Carbon Dioxide 25 mmol/L (22-32); Chloride 97 mmol/L (98-107); Estimated Glomerular Filt Rate > 60.0 mL/min (>60); Glucose 92 mg/dL (70-100); HEMOLYSIS < 15 (0-50); Magnesium 1.9 mg/dL (1.6-2.3); Potassium 4.3 mmol/L (3.4-5.1); Sodium 131 mmol/L (137-145)
[2018-07-29] MEDS: ERTAPENEM 1 GM in SODIUM CHLORIDE 0.9% 100 ML 200 ML IV (12:53)
--- NOTE | 2018-07-29 13:29 | PM.PN.1 ---
Subjective Date Patient Seen: 07/29/18 Time Patient Seen: 08:00 Interval history: TPN d/c over weekend with return of bowel function, NGT out Tolerating a regular diet Feeling well, pain nearly resolved + Fatigue Exam Vital Signs (past 8 hours): - 07/29/18 08:00 07/29/18 12:00 Temperature 99.6 F 97.8 F Pulse Rate 78 68 Respiratory Rate 18 18 Blood Pressure 109/73 111/66 Pulse Oximetry 95 97 Fraction of Inspired Oxygen 21 Oxygen Delivery Method Room Air Oxygen Flow Rate 0 Narrative Exam Narrative: NAD, looks well on RA RRR Abd soft nontender nondistended drains with minimal serosang output periphery warm and well perfused 2+ LE edeam Objective Labs Result Diagrams: 07/29/18 08:10 07/29/18 08:10 Labs: Laboratory Results - last 24 hr 07/29/18 07/29/18 08:10 08:10 WBC 15.2 H RBC 3.47 L Hgb 10.3 L Hct 31.0 L MCV 89.5 MCH 29.8 MCHC 33.3 RDW 15.5 H Plt Count 511 H Neut % (Auto) 82.8 H Lymph % (Auto) 6.7 L [place] % (Auto) 9.4 Eos % (Auto) 0.6 L Baso % (Auto) 0.5 Neut # (Auto) 66500 H Lymph # (Auto) 1000 L [place] # (Auto) 1400 H Eos # (Auto) 100 Baso # (Auto) 100 Sodium 131 L Potassium 4.3 Chloride 97 L Carbon Dioxide 25 BUN 14 Creatinine 0.70 Estimated GFR > 60.0 BUN/Creatinine Ratio 20.0 Glucose 92 Calcium 8.0 L Magnesium 1.9 Assessment & Plan Assessment & Plan narrative: 57M POD6 s/p reop lap PEPPER and drainage of perihepatic colection for infected fluid collection and early post op SBO. POD 11 status post lap appy and abdominal washout for perforated appendicitis. Now well with good bowel function Unfortunately WBC is falling slowly still at 15 today - would like closer to normal before stopping IV abx Plan: Multimodal pain control with APAP, gabapentin, methocarbamol, [employer] BP control for hx of renal artery stenosis Ertapenum + metronidazole + probiotic Abx day 11 stopping insulin as off TPN Daily CBC - once near normal OK to d/c home heparin SQ for DVT Quality VTE Deep Vein Thrombosis/Pulmonary Embolism Present on Admission: No
--- NOTE | 2018-07-29 13:34 | P.PN_ITS ---
Subjective Date Patient Seen: 07/29/18 Time Patient Seen: 08:00 Interval history: TPN d/c over weekend with return of bowel function, NGT out Tolerating a regular diet Feeling well, pain nearly resolved + Fatigue Exam Vital Signs (past 8 hours): - 07/29/18 08:00 07/29/18 12:00 Temperature 99.6 F 97.8 F Pulse Rate 78 68 Respiratory Rate 18 18 Blood Pressure 109/73 111/66 Pulse Oximetry 95 97 Fraction of Inspired Oxygen 21 Oxygen Delivery Method Room Air Oxygen Flow Rate 0 Narrative Exam Narrative: NAD, looks well on RA RRR Abd soft nontender nondistended drains with minimal serosang output periphery warm and well perfused 2+ LE edeam Objective Labs Result Diagrams: 07/29/18 08:10 07/29/18 08:10 Labs: Laboratory Results - last 24 hr 07/29/18 07/29/18 08:10 08:10 WBC 15.2 H RBC 3.47 L Hgb 10.3 L Hct 31.0 L MCV 89.5 MCH 29.8 MCHC 33.3 RDW 15.5 H Plt Count 511 H Neut % (Auto) 82.8 H Lymph % (Auto) 6.7 L [place] % (Auto) 9.4 Eos % (Auto) 0.6 L Baso % (Auto) 0.5 Neut # (Auto) 21056 H Lymph # (Auto) 1000 L [place] # (Auto) 1400 H Eos # (Auto) 100 Baso # (Auto) 100 Sodium 131 L Potassium 4.3 Chloride 97 L Carbon Dioxide 25 BUN 14 Creatinine 0.70 Estimated GFR > 60.0 BUN/Creatinine Ratio 20.0 Glucose 92 Calcium 8.0 L Magnesium 1.9 Assessment & Plan Assessment & Plan narrative: 57M POD6 s/p reop lap PEPPER and drainage of perihepatic colection for infected fluid collection and early post op SBO. POD 11 status post lap appy and abdominal washout for perforated appendicitis. Now well with good bowel function Unfortunately WBC is falling slowly still at 15 today - would like closer to normal before stopping IV abx Plan: Multimodal pain control with APAP, gabapentin, methocarbamol, CAFE LEAD BP control for hx of renal artery stenosis Ertapenum + metronidazole + probiotic Abx day 11 stopping insulin as off TPN Daily CBC - once near normal OK to d/c home heparin SQ for DVT Quality VTE Deep Vein Thrombosis/Pulmonary Embolism Present on Admission: No
[2018-07-29] MEDS: OXYCODONE IR 5 MG TABLET PO (20:48)
[2018-07-29] MEDS: GABAPENTIN 600 MG TABLET PO (20:48)
[2018-07-29] MEDS: ATORVASTATIN 20 MG TABLET PO (20:49)
[2018-07-29] MEDS: SODIUM CHLORIDE 0.9% 500 ML 21 ML IV (23:59)
[2018-07-30 00:08] VITALS: BP 112/68; PULSE 65; RESP 18; TEMP 36.8; O2SAT 93
[2018-07-30 00:17] VITALS: O2SAT 93
[2018-07-30] MEDS: OXYCODONE IR 5 MG TABLET PO ×2 (00:50→04:51)
[2018-07-30] MEDS: ACETAMINOPHEN 325 MG TABLET 650 MG PO ×2 (03:16→09:21)
[2018-07-30 05:06] VITALS: BP 108/71; PULSE 63; RESP 18; TEMP 36.1; O2SAT 97
[2018-07-30] MEDS: KETOROLAC 30 MG/ML VIAL IV (05:55)
[2018-07-30] MEDS: HEPARIN 5,000 UNIT/ML VIAL 5000 UNIT SUBCUT (05:56)
[2018-07-30] MEDS: metroNIDAZOLE 500 MG/100 ML PIGGYBACK 100 MG IV (05:56)
[2018-07-30] MEDS: SODIUM CHLORIDE 0.9% FLUSH 10 ML IV ×2 (05:58→05:59)
[2018-07-30 06:20] LABS: Add Manual Diff / Slide Review NO; Basophils Absolute Auto 100 /uL (0-100); Basophils Percent Auto 0.5 % (0-2); Eosinophils Absolute Auto 100 /uL (0-450); Hematocrit 29.4 % (41-53); Hemoglobin 9.8 g/dL (13.5-17.5); Lymphocytes Absolute Auto 1300 /uL (1100-4500); Lymphocytes Percent Auto 11.7 % (25-40); Mean Corpuscular HGB Conc 33.3 % (30-36); Mean Corpuscular Hemoglobin 29.9 PG (26-34); Mean Corpuscular Volume 89.9 fL (80-100); Monocytes Absolute Auto 1100 /uL (0-900); Monocytes Percent Auto 9.3 % (3-14); Neutrophils Absolute Auto 8900 /uL (1500-7000); Neutrophils Percent Auto 77.5 % (50-75); Platelet Count 479 X10^3/uL (150-400); Red Blood Cell Count 3.27 X10^6/uL (4.5-5.9); Red Cell Distribution Width 15.7 % (11.6-14.8); White Blood Cell Count 11.4 X10^3/uL (4.5-11.0)
[2018-07-30] MEDS: PANTOPRAZOLE 40 MG TABLET PO (06:53)
[2018-07-30 07:27] VITALS: BP 108/76; PULSE 66; RESP 16; TEMP 37.3; O2SAT 96
[2018-07-30 08:40] VITALS: O2SAT 95
[2018-07-30] MEDS: ERTAPENEM 1 GM in SODIUM CHLORIDE 0.9% 100 ML 200 ML IV (08:53)
[2018-07-30] MEDS: ALLOPURINOL 300 MG TABLET PO (09:20)
[2018-07-30] MEDS: LACTOBACILLUS ACIDOPHILUS TABLET 1 EACH PO (09:20)
[2018-07-30] MEDS: AMLODIPINE 5 MG TABLET 2.5 MG PO (09:21)
[2018-07-30] MEDS: METHOCARBAMOL 500 MG TABLET PO (09:21)
--- NOTE | 2018-07-30 09:23 | PC.NURSE ---
Day shift: R side ADDY drain and abdominal ADDY drain removed. Patient tolerated well. R drain had 15 mL of drainage and the abdominal drain had 5 mL. Drain sites were intact and had no signs of infection. Drains removed under MD's direction.
--- NOTE | 2018-07-30 09:27 | PC.NURSE ---
Day shift: Drains removed by student RN under the direction of . Per student Pt tolerated well. Pt to d/c today and will be instructed to monitor these sites as well as surgical sites.
--- NOTE | 2018-07-30 11:31 | PC.NURSE ---
Day shift: Pt left unit in WC with [employer]IVER and spouse to private car for the [address] ferry to [facility]. Paperwork signed and all questions answered. Pt has scrips being filled downstairs now. Pt has all personal belongings.
--- NOTE | 2018-07-30 15:05 | CM.DPC ---
DCP: continued: Case received and discussed in Team Rounds. Pt was expected to be able to d/c today if surgeon deemed him stable for d/c. A check in now shows that Dr. Torres did ok pt for home and he left with his early this afternoon with plan to catch the 1440 ferry to [place].
--- NOTE | 2018-07-30 16:34 | PM.DS.1 ---
History of Present Illness Chief complaint: APPENDIX Narrative: 57-year-old man with history of renal artery stenosis and hypertension as well as problematic gout presented to an outside hospital with acute abdominal pain. briefly approximately 24 hours ago the patient awoke from sleep with significant nausea and vomiting and feeling unwell. The symptoms progressed and by later in the morning he developed significant periumbilical abdominal pain. he proceeded to go to work but then returned home after 3 hours with significant fatigue and worsening pain. the pain in the early afternoon then progressed and localized to the right lower quadrant. he continued to feel poor with worsening nausea. Pain was worsened with walking or other movement. Patient presented to the emergency department in Sunday where he was found to have a leukocytosis and a CT scan demonstrated a locally contained perforation of a retrocecal appendix with adjacent phlegmon changes. No abscess identified. He was taken by helicopter to our facility. Upon arrival patient felt minimally improved. His initial heart rate was 110. He was hypertensive and afebrile. Of note there is a family history of colon cancer and grandmother at age 70. Patient has had a colonoscopy approximately 2 years ago underwent polypectomy at the time. He generally receives a colonoscopy now every 5 years. Discharge Providers Date of admission: 07/15/18 20:47 Discharge Date: 07/30/18 Consults: 07/17/18 08:11 Consult to Respiratory Therapy Evaluate & Treat Comment: Physician Instructions: Evaluate and treat 07/17/18 17:09 Consult to Respiratory Therapy Evaluate & Treat Comment: Physician Instructions: Evaluate and treat 07/25/18 14:42 Consult to PICC Line RN Routine Comment: for TPN 07/25/18 14:59 Consult to Dietitian, Adult Routine Comment: Reason For Exam: tpn NPO x 13 days Discharge provider: Federico Cevallos Summary Discharge Diagnosis: Acute perforated appendicitis Perihepatic abscess Early small-bowel obstruction Prolonged ileus Moderate protein calorie malnutrition Hypertension Hospital Course: 57-year-old generally healthy man with known history of renal artery stenosis presented as transfer from outside facility for what initially appeared to be a locally contained perforated appendicitis. He was admitted started on antibiotic therapy and initially improved. Over the subsequent day however he began to decline with rising white blood cell count and clinical decline. He was taken emergently to the operating room where laparoscopic appendectomy was performed. the majority of the appendix was necrotic with a small amount of free stool within the retrocecal space. his appendix was stapled off at a healthy base and the abdomen was extensively washed out. Patient will initially improved but went on to have progressive abdominal distention his obstipation number resolved. In addition patient had a slowly climbing white blood cell count. On postop day [address] abdomen and pelvis was performed which demonstrated a small-bowel obstruction with distal small bowel loops decompressed and proximal quite large. In addition he had a significant infected fluid collection over the dome of the right lobe of the liver. He was taken back to the operating room the same day for a laparoscopic lysis of adhesions -he had a hairpin turn within the ileum from early adhesive disease related to his infection that created his obstruction. in addition the fluid collection over the dome of the liver was entered widely opened and drained. Abdomen was again washed out this time with 4 L of Patient recovered well with steady progression however he did not have resumption of his bowel function and due to the prolonged NPO status he was started on TPN with a PICC placed. by postop day 5 after his 2nd surgery he reconstituted bowel function and TPN was stopped. His white blood cell count was slow to decline despite use of Ertapenum. And was capped several additional days until his WBC nearly normalized. He is discharged with 10 days of total antibiotics since source control -home on levofloxacin/metronidazole Status at Discharge Cognitive/behavioral status at discharge: oriented Functional status at discharge: independent ambulation Overall status at discharge: patient is progressing back to baseline Time Spent with Patient Less than 30 minutes Exam Vital Signs (past 8 hours): - 07/30/18 08:40 Pulse Oximetry 95 Fraction of Inspired Oxygen 21 Oxygen Delivery Method Room Air Oxygen Flow Rate 0 Narrative Exam Narrative: Well-appearing man in no acute distress Breathing comfortably on room Walking within the hallways at a reasonable Abdomen soft nontender nondistended, drains removed, wounds clean dry and intact Objective Labs Result Diagrams: 07/30/18 05:35 07/29/18 08:10 Labs: Laboratory Results - last 24 hr 07/30/18 05:35 WBC 11.4 H RBC 3.27 L Hgb 9.8 L Hct 29.4 L MCV 89.9 MCH 29.9 MCHC 33.3 RDW 15.7 H Plt Count 479 H Neut % (Auto) 77.5 H Lymph % (Auto) 11.7 L [place] % (Auto) 9.3 Eos % (Auto) 1.0 L Baso % (Auto) 0.5 Neut # (Auto) 8900 H Lymph # (Auto) 1300 [place] # (Auto) 1100 H Eos # (Auto) 100 Baso # (Auto) 100 Discharge Plan Discharge Plan Patient Disposition: Home Discharge comment: Must receive dose of Ertapenum prior to discharge, remove picc prior to discharge. Discharge Med Rec/Prescriptions Prescriptions: New methocarbamol 500 mg Tablet 500 mg PO QID 2 Days Qty: 8 RF: 0 gabapentin [Neurontin] 600 mg Tablet 600 mg PO BEDTIME 6 Days Qty: 6 RF: 0 acetaminophen 500 mg capsule 1,000 mg PO Q6H PRN (Reason: Abdominal Discomfort) Qty: 30 RF: 0 oxycodone 5 mg Tablet 5 mg PO Q4HR PRN (Reason: Pain, Moderate (4-6)) Qty: 8 RF: 0 Bacid (L. acidophilus) 1 billion cell- 250 mg Tablet 1 ea PO TIDWM 30 Days RF: 0 metronidazole 500 mg tablet 500 mg PO TID Qty: 12 RF: 0 levofloxacin 500 mg tablet 500 mg PO DAILY Qty: 4 RF: 0 oxycodone 5 mg tablet 5 mg PO Q4-6H PRN (Reason: pain) Qty: 8 RF: 0 Continued ibuprofen [Motrin IB] 200 mg Tablet 400 mg PO Q4-6H PRN (Reason: Pain (Scale Score 1-3)) RF: 0 benazepril 20 mg Tablet 20 mg PO BID RF: 0 allopurinol [Zyloprim] 300 mg Tablet 300 mg PO DAILY RF: 0 simvastatin [Zocor] 40 mg Tablet 40 mg PO QPM RF: 0 magnesium 250 mg Tablet 250 mg PO DAILY RF: 0 Discontinued hydrocodone-acetaminophen [[place]] 5-325 mg Tablet 2 tab PO Q4-6H PRN (Reason: Pain (Scale Score 4-6)) RF: 0 Follow up/Referrals: Federico Cevallos MD [Physician] - (follow up appt in about 2 weeks-appointment is:08/15 @ 2:00 with a 1:[address] cevallos [phone] ) Provider Discharge Instructions Diet: Diet as Tolerated Activity: all activity OK except: No lifting over 15lbs for 4 weeks after surgery, no heavy lifting for 6 weeks after surgery. You can soak under water ie bath in 2 weeks. OK to shower starting this evening. Skin/Wound/Dressing Care Report to your healthcare provider any signs of infection, such as:: chills, fever and increased pain Dressing: Gauze to drain areas as long as they drain - change two times a day. Visit Report/Discharge Packet Instructions: Acidophilus and Other Probiotics (Alternative Therapy), DI for an Appendectomy, DI for Laparoscopy, Acetaminophen, Oxycodone, Methocarbamol, Metronidazole, Gabapentin, Levofloxacin, Clostridium difficile Infection, [facility]: Wound Care Stand Alone Forms: Surgery Discharge Discharge Data Attending Provider: Federico Cevallso Admit Date/Time: 07/15/18 20:47 Discharges patient from system. Discharge Date/Time: 07/30/18 11:33 Quality VTE Deep Vein Thrombosis/Pulmonary Embolism Present on Admission: No
== END 2018-07-30 11:33 | disposition home or self-care (01) | DRG 335 ==
PROVIDERS: Specialist; Admitting Provider Surgery; Visit Provider Surgery
PROC: 0DTJ4ZZ Resection of Appendix, Percutaneous Endoscopic Approach (ICD-10-PCS; CPT 44970; principal; 2018-07-17 16:45)
PROC: 0DNE4ZZ Release Large Intestine, Percutaneous Endoscopic Approach (ICD-10-PCS; CPT 49320; principal; 2018-07-23 16:30)
DX: K35.32 Acute appendicitis with perforation, localized peritonitis, and gangrene, without abscess (principal); K65.1 Peritoneal abscess; K56.50 Intestinal adhesions [bands], unspecified as to partial versus complete obstruction; T81.43XA Infection following a procedure, organ and space surgical site, initial encounter; E44.0 Moderate protein-calorie malnutrition; K56.7 Ileus, unspecified; E87.70 Fluid overload, unspecified; Z68.30 Body mass index [BMI] 30.0-30.9, adult; I10 Essential (primary) hypertension; E78.5 Hyperlipidemia, unspecified; M10.9 Gout, unspecified; Z87.891 Personal history of nicotine dependence
CPT/HCPCS: 36415; 36573; 44180; 44970; 74018; 74022; 74177; 74250; 80048; 82962; 83605; 83735; 85025; 85048; 87070; 87075; 87205; 94760; 94762; 99223; B4189; J0131; J0330; J0360; J1170; J1335; J1644; J1885; J1940; J1956; J2250; J2270; J2405; J2704; J3010; J3475; J3480; Q9967